=== PATIENT | female | born 1960 | race Caucasian/White ===

== ENCOUNTER → 2019-04-16 13:48 | Outpatient (BNVA) | payer MEDICARE, MEDICAID, SELFPAY | PROVIDERS: Family Provider Nurse Practitioner Family; PCP Nurse Practitioner Family; Visit Provider Nurse Practitioner | DX: F33.41 Major depressive disorder, recurrent, in partial remission (principal) | CPT/HCPCS: 99213 ==

== ENCOUNTER → 2019-07-16 08:19 | Outpatient (BNVA) | payer MEDICARE, MEDICAID, SELFPAY | PROVIDERS: Family Provider Nurse Practitioner Family; PCP Nurse Practitioner Family; Visit Provider Nurse Practitioner | DX: F33.41 Major depressive disorder, recurrent, in partial remission (principal) | CPT/HCPCS: 99213 ==

== ENCOUNTER → 2019-09-23 14:08 | Outpatient (BNVA) | payer MEDICARE, MEDICAID, SELFPAY | PROVIDERS: Family Provider Nurse Practitioner Family; PCP Nurse Practitioner Family; Visit Provider Podiatrist Foot & Ankle Surgery | DX: E11.42 Type 2 diabetes mellitus with diabetic polyneuropathy (principal); M79.671 Pain in right foot; M79.672 Pain in left foot | CPT/HCPCS: 73630 ==

== ENCOUNTER → 2019-10-22 08:13 | Outpatient (BNVA) | payer MEDICARE, MEDICAID, SELFPAY | PROVIDERS: Family Provider Nurse Practitioner Family; PCP Nurse Practitioner Family; Visit Provider Nurse Practitioner | DX: F33.41 Major depressive disorder, recurrent, in partial remission (principal); F41.1 Generalized anxiety disorder | CPT/HCPCS: 99213 ==

== ENCOUNTER → 2019-12-19 13:23 | Outpatient (BNVA) | payer MEDICARE, MEDICAID, SELFPAY | PROVIDERS: Family Provider Nurse Practitioner Family; PCP Nurse Practitioner Family; Visit Provider Podiatrist Foot & Ankle Surgery | DX: E11.42 Type 2 diabetes mellitus with diabetic polyneuropathy (principal); M79.671 Pain in right foot; M79.672 Pain in left foot; M25.372 Other instability, left ankle; M25.371 Other instability, right ankle | CPT/HCPCS: 73610 ==

== ENCOUNTER → 2020-01-06 08:07 | Outpatient (BNVA) | payer MEDICARE, MEDICAID, SELFPAY | PROVIDERS: Family Provider Nurse Practitioner Family; PCP Nurse Practitioner Family; Visit Provider Nurse Practitioner | DX: F33.41 Major depressive disorder, recurrent, in partial remission (principal) | CPT/HCPCS: 99213 ==

== ENCOUNTER → 2020-01-24 08:59 | Outpatient (BNVA) | payer MEDICARE, MEDICAID, SELFPAY | PROVIDERS: Family Provider Nurse Practitioner Family; PCP Nurse Practitioner Family; Visit Provider Nurse Practitioner | DX: F33.41 Major depressive disorder, recurrent, in partial remission (principal) | CPT/HCPCS: 99214 ==

== ENCOUNTER → 2020-03-13 10:50 | Outpatient (BNVA) | payer MEDICARE, MEDICAID, SELFPAY | PROVIDERS: Family Provider Nurse Practitioner Family; PCP Nurse Practitioner Family; Visit Provider Nurse Practitioner | DX: F33.41 Major depressive disorder, recurrent, in partial remission (principal) | CPT/HCPCS: 99214 ==

== ENCOUNTER 2020-03-31 16:02 | Emergency (ER) | payer MEDICARE, MEDICAID, SELFPAY ==
[2020-03-31 16:03] VITALS: BP 187/75; PULSE 66; RESP 18; TEMP 36.7; O2SAT 98; BMI 60.7
--- NOTE | 2020-03-31 16:22 | ED_ITS ---
Documented by User: PALLAVI Castañeda 03/31/20 17:05 HPI - Fall General: Chief Complaint: Fall Stated Complaint: FALL, L ANKLE PAIN , NECK PAIN Time Seen by Provider: 03/31/20 16:17 Source: patient Mode of arrival: EMS Limitations: no limitations History of Present Illness: HPI Narrative: Patient is a 60-year-old female who presents to ED today via EMS following a slip and fall on ice that happened just prior to arrival. Patient tells me she slipped and fell backwards striking the posterior aspect of her head. There was no LOC. She is complaining of a headache and neck pain as well as upper back pain. She states she twisted her left ankle during the fall. She has not been able to bear weight on the ankle since event. She denies lower back pain, hip pain. Patient is alert, oriented, and answering all questions appropriately. She has no other complaints other than those mentioned above. MD complaint: fall Onset (ago): hour(s) Fall from: standing Fall witnessed: yes, by family Place fall occurred: home Loss of consciousness: None Prolonged down time: no Symptoms prior to fall: none Context: tripped/slipped (on ice) Location of injury: head, neck and back (upper back) Location of injury - extremities: Left: ankle and foot Associated symptoms-after fall: Reports no associated symptoms, headache(s) and neck pain; Denies chest pain, confusion, lightheadedness or vertigo Review of Systems Const: Denies: fever(s), chills, body aches or fatigue Eyes: Denies: change in vision, blurry vision or photophobia Card: Denies: chest pain, palpitations or lightheadedness Resp: Denies: dyspnea GI: Denies: nausea or vomiting Musc: Reports: neck pain, back pain, extremity pain (L foot) and joint pain (L ankle) Skin/Breast: Reports: other (no lacerations/abrasions noted) Neuro: Reports: headache(s); Denies: numbness in extremities, weakness in extremities, sensory changes, dizziness, vertigo, confusion or Slurred speech present [facility] ED PFSH: Medical History Bipolar disorder Fibromyalgia Hyperlipidemia Hypertension Major depressive disorder, recurrent, 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 Surgical History H/O tubal ligation Family History Family/Other Diabetes Denies family history of CAD (coronary artery disease) Clotting disorder Dementia Hyperlipidemia Psychiatric illness Chronic kidney disease (CKD) Suicide Anesthesia complication Bleeding disorder Family history of premature coronary artery disease Lung disease Cancer Hypertension Stroke Social History Smoking and tobacco status: never smoked Alcohol intake: never Current occupational status: disabled Physical Exam Const: COMMON NORMALS: no acute distress, patient oriented x3, no limitations and alert GENERAL APPEARANCE: cooperative NUTRITIONAL APPEARANCE: obese (BMI > 60) morbidly obese ORIENTATION/CONSCIOUSNESS: Yes awake, Yes oriented to person, Yes oriented to place and Yes oriented to time HENMT: COMMON NORMALS: normocephalic, atraumatic, hearing grossly normal bilaterally and EAC's normal HEAD & SCALP: normal to inspection, normocephalic and atraumatic FACE & SINUS: normal facial exam and sinuses nontender EXTERNAL AUDITORY CANAL: EAC's normal Eye: COMMON NORMALS: Equal, round and reactive pupils present and EOMs intact bilaterally GENERAL EYE: appearance normal, both eyes and all related structures PUPIL: Yes Equal, round and reactive pupils present Neck/C-Spine: CERVICAL SPINE: Yes Cervical spine tenderness (mid to lower C spine) and No step off deformity OTHER: c-collar placed by EMS; this was not removed for ROM testing Chest: COMMONS NORMALS: normal inspection of the chest and normal palpation of entire chest wall Resp: COMMON NORMALS: normal respiratory effort and clear to auscultation bilaterally AUSCULTATION: clear to auscultation bilaterally Cardio: COMMON NORMALS: regular rate and regular rhythm RATE: regular rate RHYTHM: regular rhythm : COMMON NORMALS: Yes no CVA tenderness BLADDER/KIDNEY EXAM: Yes no CVA tenderness Back/Pelvis: COMMON NORMALS: no CVA tenderness THORACIC SPINE/UPPER BACK: Yes normal to inspection and Yes thoracic spinal tenderness (upper T spine) LUMBAR SPINE/LOWER BACK: Yes normal to inspection and No lumbar spinal tenderness PELVIS: Yes buttocks normal SACROILIAC JOINTS: Yes SI joints normal COCCYX: no tenderness Extremity: GENERAL: Yes normal exam except as noted OTHER: TTP to lateral dorsal L foot; TTP 4-5 digits; TTP throughout L ankle joint-pain mainly produced with foot inversion; there are no obvious bony deformities noted; NV intact Neuro: RACHAEL COMA SCALE: document [facility] findings Rachael coma scale eye opening: Spontaneous [place] coma scale verbal response: Orientated Rachael coma scale motor response: Obey commands [place] coma scale total score: 15 COMMON NORMALS: patient oriented x3, CN's II-XII intact bilaterally, moves all extremities, no focal motor deficits and no sensory deficits noted SENSORIUM/ORIENTATION: Yes alert, Yes oriented to person, Yes oriented to place and Yes oriented to time GAIT: Yes Unable to assess gait Skin: NARRATIVE SKIN EXAM: no lacerations/abrasions noted Course Vital Signs: Vital signs: Vital Signs Temperature 98.9 F 03/31/20 18:57 Pulse Rate 67 03/31/20 18:57 Respiratory Rate 20 H 03/31/20 18:57 Blood Pressure 171/57 03/31/20 18:57 Pulse Oximetry 98 03/31/20 18:57 MDM - Fall Imaging Data^: CT Head: Radiologist's impression: [address] [address] [address] Scan Report Signed Patient: Jaylin Granados Unit #: [id number] : 1960 6 Age/Sex: 60 / F ADM Date: 03/31/20 Loc: ER Room/Bed: Attending Dr: Ordering Provider/Ordering MD: Crystal Orozco Date of Service: 03/31/20 Procedure(s): CT head wo con* [id number] Accession Number(s): [id number] Report Number: [id number] PROCEDURE INFORMATION: Exam: CT Head Without Contrast Exam date and time: 03/31/2020 4:27 PM Age: 60 years old Clinical indication: Injury or trauma; Fall; Blunt trauma (contusions or hematomas); Additional info: Trauma/fall/pain TECHNIQUE: Imaging protocol: Computed tomography of the head without contrast. Axial, coronal and sagittal reformatted images were created and reviewed. Radiation optimization: All CT scans at this facility use at least one of these dose optimization techniques: automated exposure control; mA and/or kV adjustment per patient size (includes targeted exams where dose is matched to clinical indication); or iterative reconstruction. COMPARISON: No relevant prior studies available. RADIATION DOSE METRICS: Total DLP (mGy-cm): 910.05 FINDINGS: Brain: No CT evidence of acute intracranial hemorrhage or acute territorial infarction. No significant mass effect or midline shift. Basal cisterns patent. Cerebral ventricles: Normal in size and configuration. Bones/joints: No acute osseous abnormality. Paranasal sinuses: Minimal ethmoid mucosal thickening. Mastoid air cells: Grossly unremarkable. Vasculature: Calcific atherosclerotic disease in the cavernous internal carotid arteries. Soft tissues: Grossly unremarkable. CT/CT head wo con* [id number] IMPRESSION: 1[address] No CT evidence of acute intracranial pathology. 2. Additional findings, as above. Radiation Dose CTDIVOL = (mGy): DLP = 910.05 (mGy-cm) Dictated By: Rafael Sandoval MD Signed By: Rafael Sandoval MD Signed Date/Time: 03/31/201701 DD/ 00 Discharge Plan Discharge Patient Disposition: Home Clinical Impression: Neck pain Fall Qualifiers: Encounter type: initial encounter Qualified Code(s): W19.XXXA - Unspecified fall, initial encounter Condition: Stable Prescriptions: New ibuprofen 800 mg tablet 800 mg PO Q8H PRN (Reason: pain) Qty: 30 RF: 0 methocarbamol 750 mg tablet 750 mg PO Q8H Qty: 15 RF: 0 No Action (DME) Articulating AFO See Rx Instructions .Route .MEDSUPPLY Qty: 1 RF: 0 (DME) Diabetic shoes with molded inserts See Rx Instructions .Route .MEDSUPPLY Qty: 1 RF: 0 carbamazepine [Tegretol] 200 mg tablet 200 mg PO BID Qty: 60 RF: 2 nefazodone 200 mg tablet 200 mg PO BID Qty: 60 RF: 2 topiramate [Topamax] 25 mg tablet 50 mg PO BID Qty: 60 RF: 2 zolpidem [Ambien] 5 mg tablet 5 mg PO .at bed Qty: 30 RF: 2 tramadol 50 mg tablet 50 mg PO QID RF: 0 carbidopa-levodopa 25-100 mg tablet 1 tab PO DAILY PRNRF: 0 dicyclomine 10 mg capsule 10 mg PO BID RF: 0 estradiol [Estrace] 1 mg tablet 1 mg PO DAILY RF: 0 levothyroxine 100 mcg capsule 100 mcg PO DAILY RF: 0 lisinopril 2.5 mg tablet 2.5 mg PO DAILY RF: 0 lovastatin 40 mg tablet 40 mg PO DAILY RF: 0 pregabalin [Lyrica] 100 mg capsule 100 mg PO BID RF: 0 metformin 1,000 mg tablet 1,000 mg PO BID RF: 0 progesterone micronized 200 mg capsule 400 mg PO DAILY RF: 0 omeprazole 40 mg capsule,delayed release(DR/EC) 40 mg PO DAILY RF: 0 pioglitazone [Actos] 45 mg tablet 45 mg PO DAILY RF: 0 azelastine 137 mcg (0.1 %) aerosol,spray 1 spray INTRANASAL DAILY RF: 0 Pazeo 0.7 % drops 1 drop ophthalmic (eye) DAILY RF: 0 sertraline [Zoloft] 50 mg tablet 50 mg PO DAILY Qty: 30 RF: 1 (DME) Bilateral AFO's or Dupree Balance Brace See Rx Instructions .Route .MEDSUPPLY Qty: 1 RF: 0 Discharge Orders: Discharge ED (Routine); Ordered 03/31/20 Ordered By: Alexis Carlin Referrals: Yannick Garrett FNP [Primary Care Provider] - Discharge Diet: Regular Discharge Activity: Increase activity as tolerated Activity Restrictions/Additional Instructions: Follow-up with medical provider as directed in 7 to 10 days for reevaluation. Take medications as prescribed. Remember methocarbamol as a muscle relaxer and can cause some drowsiness so take at night before bed. Apply cold pack or heat on sore areas to help with symptoms. Return to the ER or your medical provider if condition worsens. Please read and understand discharge instructions. If any questions, please ask. Sign Out Sign Out Data: Patient Sign Out occurred on 03/31/20 at 17:14. Patient's care was discussed, and care was transferred from to PALLAVI Milligan. 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 Surgical History H/O tubal ligation Family History Family/Other Diabetes Denies family history of CAD (coronary artery disease) Clotting disorder Dementia Hyperlipidemia Psychiatric illness Chronic kidney disease (CKD) Suicide Anesthesia complication Bleeding disorder Family history of premature coronary artery disease Lung disease Cancer Hypertension Stroke Social History Smoking and tobacco status: never smoked Alcohol intake: never Current occupational status: disabled Course Vital Signs: Vital signs: Vital Signs Temperature 98.9 F 03/31/20 18:57 Pulse Rate 67 03/31/20 18:57 Respiratory Rate 20 H 03/31/20 18:57 Blood Pressure 171/57 03/31/20 18:57 Pulse Oximetry 98 03/31/20 18:57 MDM - Fall MDM Narrative: Medical decision making narrative: I took over patient care from Crystal Orozco physicians dermatology physician assistant at 5 PM. Crystal Orozco performed the history and physical exam and ordered all imaging. I took over patient care was waiting on x-ray and CT of cervical spine results. Patient is a 60-year-old female who who fell backwards hitting back of head with no loss of consciousness. Patient now has neck pain, thoracic back pain, left foot and left ankle pain. All imaging was negative and showed no acute fractures or findings. Patient was discharged with a prescription for ibuprofen 800 and Robaxin. Patient told to follow-up with PCP in 7 to 10 days. Return to ED precautions given. Patient understood agree with plan. Imaging Data^: Other CT: Attestation: I personally reviewed and interpreted this imaging study as follows: Radiologist's impression: [address] [place] [address] CT Scan Report Signed Patient: Jaylin Granados Unit #: [id number] : 1960 Age/Sex: 60 / F ADM Date: 03/31/20 Loc: ER Room/Bed: Attending Dr: Ordering Provider/Ordering MD: Crystal Orozco Date of Service: 03/31/20 Procedure(s): CT cervical spin wo con* [id number] Accession Number(s): [id number] Report Number: [id number] PROCEDURE INFORMATION: Exam: CT Cervical Spine Without Contrast Exam date and time: 03/31/2020 4:27 PM Age: 60 years old Clinical indication: Injury or trauma; Fall; Blunt trauma; Additional info: Fall/pain TECHNIQUE: Imaging protocol: Computed tomography images of the cervical spine without contrast. Axial, coronal and sagittal reformatted images were created and reviewed. Radiation optimization: All CT scans at this facility use at least one of these dose optimization techniques: automated exposure control; mA and/or kV adjustment per patient size (includes targeted exams where dose is matched to clinical indication); or iterative reconstruction. COMPARISON: No relevant prior studies available. RADIATION DOSE METRICS: Total DLP (mGy-cm): 916.76 FINDINGS: Bones/joints: Osteopenia. Normal cervical lordosis. No CT evidence of acute fracture, dislocation or subluxation. Alignment anatomic. Mild dextroscoliosis. Vertebral body heights maintained. Discs/Spinal canal/Neural foramina: Mild multilevel spondylosis. No significant spinal canal or neural foraminal stenosis. Lungs: Grossly unremarkable. Soft tissues: Grossly unremarkable. CT/CT cervical spin wo con* [id number] IMPRESSION: 1. No CT evidence of acute cervical spine traumatic injury. 2. Additional findings, as above. Radiation Dose CTDIVOL = (mGy): DLP = 916.76 (mGy-cm) Dictated By: Rafael Sandoval MD Signed By: Rafael Sandoval MD Signed Date/Time: 03/31/201707 DD/ 06 Xray Ortho: Attestation: I personally reviewed and interpreted this imaging study as follows: Radiologist's impression: [address] [address] XRay Report Signed Patient: Jaylin Granados Unit #: [id number] : 1960 Age/Sex: 60 / F ADM Date: 03/31/20 Loc: ER Room/Bed: Attending Dr: Ordering Provider/Ordering MD: Crystal Orozco Date of Service: 03/31/20 Procedure(s): XR thoracic spine 3V* [id number] Accession Number(s): [id number] Report Number: [id number] PROCEDURE INFORMATION: Exam: XR Thoracic Spine, 3 Views Exam date and time: 03/31/2020 4:44 PM Age: 60 years old Clinical indication: Injury or trauma; Fall; Blunt trauma (contusions or hematomas); Additional info: Fall/pain TECHNIQUE: Imaging protocol: XR of the thoracic spine, 3 views. COMPARISON: No relevant prior studies available. FINDINGS: Bones/joints: Osteopenia. Multilevel spondylosis. No acute fracture. Normal alignment. Soft tissues: Grossly unremarkable. XR/XR thoracic spine 3V* [id number] IMPRESSION: No acute radiographic findings. Dictated By: Rafael Sandoval MD Signed By: Rafael Sandoval MD Signed Date/Time: 03/31/201754 DD/ [address] [address] XRay Report Signed Patient: Jaylin Granados Unit #: [id number] : 1960 Age/Sex: 60 / F ADM Date: 03/31/20 Loc: ER Room/Bed: Attending Dr: Ordering Provider/Ordering MD: Crystal Orozco Date of Service: 03/31/20 Procedure(s): XR foot LT min 3V* [id number] Accession Number(s): [id number] Report Number: [id number] PROCEDURE INFORMATION: Exam: XR Left Foot Exam date and time: 03/31/2020 4:44 PM Age: 60 years old Clinical indication: Injury or trauma; Fall; Blunt trauma; Foot; Left; Additional info: Fall/pain TECHNIQUE: Imaging protocol: XR Left foot. Views: 3 or more views. COMPARISON: [place] [id number] [facility] 09/23/2019 2:13 PM FINDINGS: Bones/joints: Osteopenia. No radiographic evidence of acute fracture or dislocation. Alignment anatomic. Mild degenerative changes. Soft tissues: Soft tissue swelling. XR/XR foot LT min 3V* [id number] IMPRESSION: No acute osseous abnormality. Dictated By: Rafael Sandoval MD Signed By: Rafael Sandoval MD Signed Date/Time: 03/31/201744 DD/ [address] [address] XRay Report Signed Patient: Jaylin Granados Unit #: [id number] : 1960 Age/Sex: 60 / F ADM Date: 03/31/20 Loc: ER Room/Bed: Attending Dr: Ordering Provider/Ordering MD: Crystal Orozco Date of Service: 03/31/20 Procedure(s): XR ankle LT min 3V* [id number] Accession Number(s): [id number] Report Number: [id number] PROCEDURE INFORMATION: Exam: XR Left Ankle Exam date and time: 03/31/2020 4:44 PM Age: 60 years old Clinical indication: Injury or trauma; Fall; Blunt trauma; Ankle; Left; Additional info: Fall/pain TECHNIQUE: Imaging protocol: XR Left ankle. Views: 3 or more views. COMPARISON: CR XR ankle LT min 3V* [id number] 12/19/2019 1:33 PM FINDINGS: Bones/joints: Well corticated ossicle adjacent to the medial malleolus, similar to prior. No radiographic evidence of acute fracture or dislocation. Alignment anatomic. Mild degenerative changes. No definite effusion. Soft tissues: Mild soft tissue swelling. XR/XR ankle LT min 3V* [id number] IMPRESSION: No acute osseous abnormality. Dictated By: Rafael Sandoval MD Signed By: Rafael Sandoval MD Signed Date/Time: 03/31/201743 DD/ 42 Discharge Plan Discharge Patient Disposition: Home Clinical Impression: Neck pain Fall Qualifiers: Encounter type: initial encounter Qualified Code(s): W19.XXXA - Unspecified fall, initial encounter Condition: Stable Prescriptions: New ibuprofen 800 mg tablet 800 mg PO Q8H PRN (Reason: pain) Qty: 30 RF: 0 methocarbamol 750 mg tablet 750 mg PO Q8H Qty: 15 RF: 0 No Action (DME) Articulating AFO See Rx Instructions .Route .MEDSUPPLY Qty: 1 RF: 0 (DME) Diabetic shoes with molded inserts See Rx Instructions .Route .MEDSUPPLY Qty: 1 RF: 0 carbamazepine [Tegretol] 200 mg tablet 200 mg PO BID Qty: 60 RF: 2 nefazodone 200 mg tablet 200 mg PO BID Qty: 60 RF: 2 topiramate [Topamax] 25 mg tablet 50 mg PO BID Qty: 60 RF: 2 zolpidem [Ambien] 5 mg tablet 5 mg PO .at bed Qty: 30 RF: 2 tramadol 50 mg tablet 50 mg PO QID RF: 0 carbidopa-levodopa 25-100 mg tablet 1 tab PO DAILY PRNRF: 0 dicyclomine 10 mg capsule 10 mg PO BID RF: 0 estradiol [Estrace] 1 mg tablet 1 mg PO DAILY RF: 0 levothyroxine 100 mcg capsule 100 mcg PO DAILY RF: 0 lisinopril 2.5 mg tablet 2.5 mg PO DAILY RF: 0 lovastatin 40 mg tablet 40 mg PO DAILY RF: 0 pregabalin [Lyrica] 100 mg capsule 100 mg PO BID RF: 0 metformin 1,000 mg tablet 1,000 mg PO BID RF: 0 progesterone micronized 200 mg capsule 400 mg PO DAILY RF: 0 omeprazole 40 mg capsule,delayed release(DR/EC) 40 mg PO DAILY RF: 0 pioglitazone [Actos] 45 mg tablet 45 mg PO DAILY RF: 0 azelastine 137 mcg (0.1 %) aerosol,spray 1 spray INTRANASAL DAILY RF: 0 Pazeo 0.7 % drops 1 drop ophthalmic (eye) DAILY RF: 0 sertraline [Zoloft] 50 mg tablet 50 mg PO DAILY Qty: 30 RF: 1 (DME) Bilateral AFO's or Dupree Balance Brace See Rx Instructions .Route .MEDSUPPLY Qty: 1 RF: 0 Discharge Orders: Discharge ED (Routine); Ordered 03/31/20 Ordered By: Alexis Carlin Referrals: Yannick Garrett FNP [Primary Care Provider] - Discharge Diet: Regular Discharge Activity: Increase activity as tolerated Activity Restrictions/Additional Instructions: Follow-up with medical provider as directed in 7 to 10 days for reevaluation. Take medications as prescribed. Remember methocarbamol as a muscle relaxer and can cause some drowsiness so take at night before bed. Apply cold pack or heat on sore areas to help with symptoms. Return to the ER or your medical provider if condition worsens. Please read and understand discharge instructions. If any questions, please ask. Sign Out Sign Out Data: Patient Sign Out occurred on 03/31/20 at 17:14. Patient's care was discussed, and care was transferred from to PALLAVI Milligan. Coding Level of Care Code ED Automation/Controls Manager for Tedg Fwd Exam Comprehensive
--- NOTE | 2020-03-31 16:22 | XRR_ITS ---
PROCEDURE INFORMATION: Exam: XR Left Ankle Exam date and time: 03/31/2020 4:44 PM Age: 60 years old Clinical indication: Injury or trauma; Fall; Blunt trauma; Ankle; Left; Additional info: Fall/pain TECHNIQUE: Imaging protocol: XR Left ankle. Views: 3 or more views. COMPARISON: CR XR ankle LT min 3V* [id number] 12/19/2019 1:33 PM FINDINGS: Bones/joints: Well corticated ossicle adjacent to the medial malleolus, similar to prior. No radiographic evidence of acute fracture or dislocation. Alignment anatomic. Mild degenerative changes. No definite effusion. Soft tissues: Mild soft tissue swelling. XR/XR ankle LT min 3V* [id number] IMPRESSION: No acute osseous abnormality.
--- NOTE | 2020-03-31 16:22 | XRR_ITS ---
PROCEDURE INFORMATION: Exam: XR Left Foot Exam date and time: 03/31/2020 4:44 PM Age: 60 years old Clinical indication: Injury or trauma; Fall; Blunt trauma; Foot; Left; Additional info: Fall/pain TECHNIQUE: Imaging protocol: XR Left foot. Views: 3 or more views. COMPARISON: [place] [id number] [facility] 09/23/2019 2:13 PM FINDINGS: Bones/joints: Osteopenia. No radiographic evidence of acute fracture or dislocation. Alignment anatomic. Mild degenerative changes. Soft tissues: Soft tissue swelling. XR/XR foot LT min 3V* [id number] IMPRESSION: No acute osseous abnormality.
[2020-03-31 17:03] VITALS: BP 184/70; PULSE 62; RESP 18; O2SAT 100
[2020-03-31 17:19] VITALS: BP 184/70; PULSE 62; RESP 18; O2SAT 99
[2020-03-31 18:57] VITALS: BP 171/57; PULSE 67; RESP 20; TEMP 37.2; O2SAT 98
== END 2020-03-31 19:00 | disposition home or self-care (01) ==
PROVIDERS: Emergency Provider Physician Assistant; PCP Nurse Practitioner Family
DX: M54.2 Cervicalgia (principal); Z79.84 Long term (current) use of oral hypoglycemic drugs; W00.0XXA Fall on same level due to ice and snow, initial encounter; E78.5 Hyperlipidemia, unspecified; I10 Essential (primary) hypertension; E11.9 Type 2 diabetes mellitus without complications
CPT/HCPCS: 70450; 72072; 72125; 73610; 73630; 99283

== ENCOUNTER → 2020-04-03 08:05 | Outpatient (BNVA) | payer MEDICARE, MEDICAID, SELFPAY | PROVIDERS: PCP Nurse Practitioner Family; Visit Provider Nurse Practitioner | DX: F33.41 Major depressive disorder, recurrent, in partial remission (principal) | CPT/HCPCS: 99214 ==

== ENCOUNTER → 2020-04-06 10:06 | Outpatient (BNVA) | payer MEDICARE, MEDICAID, SELFPAY | PROVIDERS: PCP Nurse Practitioner Family; Visit Provider Podiatrist Foot & Ankle Surgery | DX: M25.572 Pain in left ankle and joints of left foot (principal); Z46.89 Encounter for fitting and adjustment of other specified devices; S93.402D Sprain of unspecified ligament of left ankle, subsequent encounter; X58.XXXD Exposure to other specified factors, subsequent encounter | CPT/HCPCS: 73610; 97760; L1902 ==

== ENCOUNTER 2020-04-06 10:59 | Outpatient (CLI) | payer MEDICARE, MEDICAID, SELFPAY | END 2020-04-06 11:00 | disposition home or self-care (01) | LOC: SPT 10:59 | PROVIDERS: PCP Nurse Practitioner Family; Visit Provider Podiatrist Foot & Ankle Surgery | DX: Z46.89 Encounter for fitting and adjustment of other specified devices (principal); S93.402D Sprain of unspecified ligament of left ankle, subsequent encounter; X58.XXXD Exposure to other specified factors, subsequent encounter | CPT/HCPCS: 97760; L1902 ==

== ENCOUNTER → 2020-06-04 10:19 | Outpatient (BNVA) | payer MEDICARE, MEDICAID, SELFPAY | PROVIDERS: PCP Nurse Practitioner Family; Visit Provider Nurse Practitioner | DX: F33.41 Major depressive disorder, recurrent, in partial remission (principal) | CPT/HCPCS: 99214 ==

== ENCOUNTER → 2020-08-27 10:13 | Outpatient (BNVA) | payer MEDICARE, MEDICAID, SELFPAY | PROVIDERS: PCP Nurse Practitioner Family; Visit Provider Nurse Practitioner | DX: F33.41 Major depressive disorder, recurrent, in partial remission (principal) | CPT/HCPCS: 99214 ==

== ENCOUNTER → 2020-09-17 08:24 | Outpatient (BNVA) | payer MEDICARE, MEDICAID, SELFPAY | PROVIDERS: PCP Nurse Practitioner Family; Visit Provider Podiatrist Foot & Ankle Surgery | DX: S90.121A Contusion of right lesser toe(s) without damage to nail, initial encounter (principal); W22.09XA Striking against other stationary object, initial encounter; M25.571 Pain in right ankle and joints of right foot | CPT/HCPCS: 73630 ==

== ENCOUNTER → 2020-12-04 12:36 | Outpatient (BNVA) | payer MEDICARE, MEDICAID, SELFPAY | PROVIDERS: PCP Nurse Practitioner Family; Visit Provider Nurse Practitioner | DX: F33.41 Major depressive disorder, recurrent, in partial remission (principal) | CPT/HCPCS: 99214 ==

== ENCOUNTER → 2021-02-26 07:37 | Outpatient (BNVA) | payer MEDICARE, MEDICAID, SELFPAY | PROVIDERS: PCP Nurse Practitioner Family; Visit Provider Nurse Practitioner | DX: F33.41 Major depressive disorder, recurrent, in partial remission (principal) | CPT/HCPCS: 99214 ==

== ENCOUNTER 2021-03-22 14:22 | Outpatient (CLI) | payer MEDICARE, MEDICAID, SELFPAY | END 2021-03-22 14:23 | disposition home or self-care (01) | LOC: SPT 14:23 | PROVIDERS: PCP Nurse Practitioner Family; Visit Provider Podiatrist Foot & Ankle Surgery | DX: Z46.89 Encounter for fitting and adjustment of other specified devices (principal); M76.821 Posterior tibial tendinitis, right leg | CPT/HCPCS: 97760; L4397 ==

== ENCOUNTER → 2021-05-05 10:23 | Outpatient (BNVA) | payer MEDICARE, MEDICAID, SELFPAY | PROVIDERS: PCP Nurse Practitioner Family; Visit Provider Internal Medicine | DX: R76.8 Other specified abnormal immunological findings in serum (principal); M25.50 Pain in unspecified joint; R53.83 Other fatigue; Z11.59 Encounter for screening for other viral diseases; Z87.891 Personal history of nicotine dependence | CPT/HCPCS: 73120; 73620; 82550; 83516; 85651; 86140; 86160; 86162; 86200; 86235; 86255; 86376; 86704; 86803; 87340; 99204 ==

== ENCOUNTER 2021-05-05 12:10 | Outpatient (CLI) | payer MEDICARE, MEDICAID, SELFPAY | END 2021-05-05 12:11 | disposition home or self-care (01) | LOC: LAB 12:13 | PROVIDERS: PCP Nurse Practitioner Family; Visit Provider Internal Medicine | DX: R76.8 Other specified abnormal immunological findings in serum (principal) | CPT/HCPCS: 82550; 83516; 85651; 86140; 86160; 86162; 86200; 86235; 86255; 86376; 86704; 86803; 87340 ==

== ENCOUNTER → 2021-05-19 14:34 | Outpatient (BNVA) | payer MEDICARE, MEDICAID, SELFPAY | PROVIDERS: PCP Nurse Practitioner Family; Visit Provider Internal Medicine | DX: R76.8 Other specified abnormal immunological findings in serum (principal); M25.50 Pain in unspecified joint; R53.83 Other fatigue; Z79.899 Other long term (current) drug therapy; Z87.891 Personal history of nicotine dependence | CPT/HCPCS: 99214 ==

== ENCOUNTER → 2021-05-28 12:39 | Outpatient (BNVA) | payer MEDICARE, MEDICAID, SELFPAY | PROVIDERS: PCP Nurse Practitioner Family; Visit Provider Nurse Practitioner | DX: F33.41 Major depressive disorder, recurrent, in partial remission (principal) | CPT/HCPCS: 99214 ==

== ENCOUNTER 2021-06-21 15:45 | Emergency (ER) | payer MEDICARE, MEDICAID, SELFPAY ==
[2021-06-21 16:13] VITALS: BP 176/75; PULSE 80; RESP 15; TEMP 36.4; O2SAT 96; BMI 53.7
--- NOTE | 2021-06-21 16:25 | XRR_ITS ---
PROCEDURE INFORMATION: Exam: XR Right Knee Exam date and time: 06/21/2021 4:42 PM Age: 61 years old Clinical indication: Pain; Knee; Right; Additional info: Fall TECHNIQUE: Imaging protocol: XR Right knee. Views: 3 views. COMPARISON: CR Knee 3 views, RIGHT* [id number] 08/18/2017 3:03 PM FINDINGS: Bones/joints: There is tricompartmental narrowing corresponding to moderate osteoarthritis. An exostosis is seen in the medial condyle of the femur. Soft tissues: Unremarkable XR/XR knee RT 3V* [id number] IMPRESSION: 1. Osteoarthritis 2. Medial femoral exostosis 3. Otherwise No acute findings.
--- NOTE | 2021-06-21 16:25 | XRR_ITS ---
PROCEDURE INFORMATION: Exam: XR Left Elbow Exam date and time: 06/21/2021 4:42 PM Age: 61 years old Clinical indication: Pain; Elbow; Left TECHNIQUE: Imaging protocol: XR Left elbow. Views: 3 or more views. COMPARISON: CR XR hand LT 2V [id number] 05/05/2021 12:46 PM FINDINGS: Bones/joints: Negative for acute bony abnormality. Soft tissues: Unremarkable XR/XR elbow LT min 3V* [id number] IMPRESSION: No acute findings.
--- NOTE | 2021-06-21 16:25 | XRR_ITS ---
PROCEDURE INFORMATION: Exam: XR Chest Exam date and time: 06/21/2021 4:42 PM Age: 61 years old Clinical indication: Cough; Additional info: Dyspnea/cough TECHNIQUE: Imaging protocol: XR of the chest. Views: 1 view. COMPARISON: CT cervical spin wo con* [id number] 03/31/2020 4:53 PM FINDINGS: Lungs: Unremarkable. No consolidation. Pleural spaces: Unremarkable. No pleural effusion. No pneumothorax. Heart/Mediastinum: Unremarkable. No cardiomegaly. Bones/joints: Unremarkable. XR/XR chest 1V portable [id number] IMPRESSION: No acute findings.
--- NOTE | 2021-06-21 16:25 | XRR_ITS ---
PROCEDURE INFORMATION: Exam: XR Left Knee Exam date and time: 06/21/2021 4:42 PM Age: 61 years old Clinical indication: Pain; Knee; Left; Additional info: Fall TECHNIQUE: Imaging protocol: XR Left knee. Views: 3 views. COMPARISON: CR Knee 3 views, LEFT* [id number] 08/18/2017 3:03 PM FINDINGS: Bones/joints: Negative for acute bony abnormalities Soft tissues: Normal. XR/XR knee LT 3V* [id number] IMPRESSION: No acute findings.
--- NOTE | 2021-06-21 16:25 | W.ED.FALL ---
HPI - Fall General: Chief Complaint: Fall Stated Complaint: CP from fall Time Seen by Provider: 06/21/21 16:24 Source: patient Mode of arrival: ambulatory Limitations: no limitations History of Present Illness: 61-year-old female presents emergency room she stumbled over her walker she tripped on an object when she fell she landed on her knees and her left elbow states she hit the left side of her sternum as well as discomfort when she takes a deep breath there is no loss of consciousness. She was able to ambulate after this and ambulated to exam room with a cane. No other recent illness. MD complaint: fall Onset (ago): minute(s) Fall from: standing Place fall occurred: home Loss of consciousness: None Prolonged down time: no Symptoms prior to fall: none Context: tripped/slipped Location of injury: chest Location of injury - extremities: Left: elbow and Bilateral: knee Associated symptoms-after fall: Reports chest pain and difficulty walking (Secondary to pain after the fall); Denies abdominal pain, confusion, headache(s), hematuria, lightheadedness, neck pain, numbness, short of breath, vertigo or weakness Review of Systems Const: Denies: fever(s), chills, body aches, change in appetite, fatigue or malaise ENMT: Denies: throat pain, ear or mastoid pain, nasal discharge or nasal congestion Card: Reports: chest pain; Denies: lightheadedness Resp: Denies: dyspnea, productive cough or non-productive cough GI: Denies: abdominal pain : Denies: hematuria Musc: Denies: neck pain Skin/Breast: Denies: rash or pruritus Neuro: Reports: difficulty walking (Secondary to pain after the fall); Denies: headache(s), vertigo or confusion PFS ED PFSH: Medical History MUNDO positive Arthralgia Bipolar disorder Fatigue Fibromyalgia Hyperlipidemia Hypertension Major depressive disorder, recurrent, in partial remission Psychiatric care Type 2 diabetes mellitus with diabetic polyneuropathy Surgical History H/O tubal ligation Family History Family/Other Diabetes Other CAD (coronary artery disease) Cancer Hyperlipidemia Rheumatoid arthritis Denies family history of Lupus Clotting disorder Dementia Psychiatric illness Chronic kidney disease (CKD) Suicide Anesthesia complication Bleeding disorder Family history of premature coronary artery disease Lung disease Hypertension Stroke Social History Smoking and tobacco status: former smoker Alcohol intake: former Current occupational status: disabled History of recent travel: No Physical Exam Const: COMMON NORMALS: no acute distress GENERAL APPEARANCE: cooperative ORIENTATION/CONSCIOUSNESS: Yes awake, Yes oriented to person, Yes oriented to place and Yes oriented to time HENMT: COMMON NORMALS: normocephalic, atraumatic, hearing grossly normal bilaterally, external ears normal, EAC's normal, TM's normal bilaterally, Normal nasal mucous membranes and turbinates present, moist oral mucous membranes and oropharynx normal HEAD & SCALP: normocephalic and atraumatic NOSE: Normal nasal mucous membranes and turbinates present EXTERNAL EAR: Yes external ears normal EXTERNAL AUDITORY CANAL: EAC's normal TYMPANIC MEMBRANE: TM's normal bilaterally Eye: COMMON NORMALS: Equal, round and reactive pupils present, EOMs intact bilaterally, conjunctivae normal and no scleral icterus CONJUNCTIVA: Yes conjunctivae normal PUPIL: Yes Equal, round and reactive pupils present Neck/C-Spine: COMMON NORMALS: full ROM, no lymphadenopathy, supple and no JVD Resp: COMMON NORMALS: normal respiratory effort, No retractions, No use of accessory muscles and clear to auscultation bilaterally AUSCULTATION: clear to auscultation bilaterally Cardio: COMMON NORMALS: no JVD, regular rate, regular rhythm and No murmurs present (Cardio) RATE: regular rate RHYTHM: regular rhythm GI: COMMON NORMALS: Soft to palpation and No hepatosplenomegaly present AUSCULTATION: Yes normoactive bowel sounds PALPATION: Yes Soft to palpation, No Tenderness to palpation present (GI), No Guarding due to palpation present (GI) and Yes No hepatosplenomegaly present Extremity: COMMON NORMALS: normal to inspection, capillary refill normal, no clubbing, cyanosis or edema, no calf tenderness and no pedal edema Neuro: SENSORIUM/ORIENTATION: Yes oriented to person, Yes oriented to place and Yes oriented to time Skin: COMMON NORMALS: no rashes or lesions noted GENERAL SKIN EXAM: no rashes or lesions noted Course Vital Signs: Vital signs: Vital Signs Temperature 98.1 F 06/21/21 17:29 Pulse Rate 68 06/21/21 17:29 Respiratory Rate 22 H 06/21/21 17:29 Blood Pressure 149/72 06/21/21 17:29 Pulse Oximetry 98 06/21/21 17:29 MDM - Fall Medical Decision Making Mechanical fall. No fractures. Ice rest [id number] anti-inflammatories Tylenol as needed follow-up as needed Medical Records I reviewed the patient's medical records. Lab Data I reviewed the patient's lab results. : 06/21/21 16:50 Radiology Impressions Chest X-Ray 06/21/21 16:25 IMPRESSION: No acute findings. Elbow X-Ray 06/21/21 16:25 IMPRESSION: No acute findings. Knee X-Ray 06/21/21 16:25 IMPRESSION: 1. Osteoarthritis 2. Medial femoral exostosis 3. Otherwise No acute findings. Laboratory Results WBC 12.3 10^3/uL (4.0-10.0) H 06/21/21 16:50 RBC 4.34 10^6/uL (4.1-5.3) 06/21/21 16:50 Hgb 11.2 g/dL (11.5-15.3) L 06/21/21 16:50 Hct 36.6 % (37.0-47.0) L 06/21/21 16:50 MCV 84.3 fl (81-99) 06/21/21 16:50 MCH 25.8 pg (28.0-34.0) L 06/21/21 16:50 MCHC 30.6 g/dL (30.0-36.0) 06/21/21 16:50 RDW 16.1 % (12.1-15.1) H 06/21/21 16:50 Plt Count 256 10^3/cmm (130-400) 06/21/21 16:50 MPV 10.9 fL (7.4-10.4) H 06/21/21 16:50 Neut % (Auto) 63.2 % 06/21/21 16:50 Lymph % (Auto) 26.6 % 06/21/21 16:50 [place] % (Auto) 5.4 % 06/21/21 16:50 Eos % (Auto) 3.7 % 06/21/21 16:50 Baso % (Auto) 0.7 % 06/21/21 16:50 Neut # (Auto) 7.74 10^3/uL (1.8-7.7) H 06/21/21 16:50 Lymph # (Auto) 3.3 10^3/uL (0.8-4.8) 06/21/21 16:50 [place] # (Auto) 0.7 10^3/uL (0.2-0.9) 06/21/21 16:50 Eos # (Auto) 0.5 10^3/uL (0.0-0.8) 06/21/21 16:50 Baso # (Auto) 0.1 10^3/uL (0.0-0.1) 06/21/21 16:50 Nucleated RBC % (auto) 0 % 06/21/21 16:50 Nucleated RBCs # 0.0 /100WBC 06/21/21 16:50 Discharge Plan Discharge Patient Disposition: Home Clinical Impression: Fall Condition: Stable Prescriptions: No Action (DME) Articulating AFO See Rx Instructions .Route .MEDSUPPLY Qty: 1 0RF Rx Instructions: Custom made, Balanced Brace carbamazepine [Tegretol] 200 mg tablet 200 mg PO BID Qty: 60 2RF medroxyprogesterone 2.5 mg tablet 2.5 mg PO DAILY 0RF cholecalciferol (vitamin D3) 1,250 mcg (50,000 unit) capsule 50,000 unit PO DAILY 0RF methocarbamol 750 mg tablet 750 mg PO Q8H PRN0RF trazodone 50 mg tablet 50 mg PO DAILY 0RF topiramate [Topamax] 25 mg tablet 50 mg PO BID Qty: 60 2RF fluoxetine 20 mg capsule 20 mg PO DAILY Qty: 30 2RF tramadol 50 mg tablet 50 mg PO QID 0RF estradiol [Estrace] 1 mg tablet 1 mg PO DAILY 0RF levothyroxine 100 mcg capsule 100 mcg PO DAILY 0RF lisinopril 2.5 mg tablet 2.5 mg PO DAILY 0RF lovastatin 40 mg tablet 40 mg PO DAILY 0RF pregabalin [Lyrica] 100 mg capsule 100 mg PO BID 0RF metformin 1,000 mg tablet 1,000 mg PO BID 0RF omeprazole 40 mg capsule,delayed release(DR/EC) 40 mg PO DAILY 0RF pioglitazone [Actos] 45 mg tablet 45 mg PO DAILY 0RF azelastine 137 mcg (0.1 %) aerosol,spray 1 spray INTRANASAL DAILY 0RF [place] 0.7 % drops 1 drop ophthalmic (eye) DAILY 0RF dicyclomine 10 mg capsule 10 mg PO TID 0RF (DME) ASO See Rx Instructions .Route .MEDSUPPLY Qty: 1 0RF Rx Instructions: As directed zolpidem [Ambien CR] 6.25 mg tablet,ext release multiphase PO 0RF loratadine 10 mg capsule 10 mg PO DAILY 0RF fluticasone propionate 50 mcg/actuation spray,suspension 2 spray intranasal DAILY 0RF Rx Instructions: administer into each nostril (DME) Diabetic shoes with molded inserts See Rx Instructions .Route .MEDSUPPLY Qty: 1 0RF Rx Instructions: As directed J P & O (DME) Night Splint See Rx Instructions .Route .MEDSUPPLY Qty: 1 0RF Rx Instructions: As directed mupirocin 2 % ointment 1 applic topical BID 14 Days Qty: 15 0RF diclofenac sodium [Voltaren Arthritis Pain] 1 % gel 4 g topical QID Qty: 100 1RF Rx Instructions: apply to single knee, ankle, foot; for foot includes sole/toes/top of foot meloxicam 15 mg tablet 15 mg PO DAILY Qty: 30 1RF (DME) Bilateral AFO's or [place] Balance Brace See Rx Instructions .Route .MEDSUPPLY Qty: 1 0RF Rx Instructions: As directed ibuprofen 800 mg tablet 800 mg PO Q8H PRN (Reason: pain) Qty: 30 0RF Discharge Orders: Discharge ED (Routine); Ordered 06/21/21 Ordered By: Thor Johnson Referrals: Yannick Garrett, [employer] [Primary Care Provider] - Discharge Diet: Usual diet Discharge Activity: Increase activity as tolerated Patient Instructions: Opioid Safety Coding Level of Care Code ED Tile Sorter for [place]
[2021-06-21 16:29] VITALS: BP 176/75; PULSE 80; RESP 15; TEMP 36.4; O2SAT 96
[2021-06-21 17:05] LABS: Basophils # 0.1 10^3/uL (0.0-0.1); Basophils % 0.7 %; Eosinophils # 0.5 10^3/uL (0.0-0.8); Eosinophils % 3.7 %; Hematocrit 36.6 % (37.0-47.0); Hemoglobin 11.2 g/dL (11.5-15.3); Lymphocytes # 3.3 10^3/uL (0.8-4.8); Lymphocytes % 26.6 %; Mean Corpuscular HGB Conc 30.6 g/dL (30.0-36.0); Mean Corpuscular Hemoglobin 25.8 pg (28.0-34.0); Mean Corpuscular Volume 84.3 fl (81-99); Mean Platelet Volume 10.9 fL (7.4-10.4); Monocytes # 0.7 10^3/uL (0.2-0.9); Monocytes % 5.4 %; Neutrophils # 7.74 10^3/uL (1.8-7.7); Neutrophils % 63.2 %; Nucleated Red Blood Cells % 0 %; Platelet Count 256 10^3/cmm (130-400); Red Blood Count 4.34 10^6/uL (4.1-5.3); Red Cell Distribution Width 16.1 % (12.1-15.1); White Blood Count 12.3 10^3/uL (4.0-10.0)
[2021-06-21 17:29] VITALS: BP 149/72; PULSE 68; RESP 22; TEMP 36.7; O2SAT 98
== END 2021-06-21 17:30 | disposition home or self-care (01) ==
PROVIDERS: Emergency Provider Family Medicine; PCP Nurse Practitioner Family
DX: R07.1 Chest pain on breathing (principal); Z87.891 Personal history of nicotine dependence; W19.XXXA Unspecified fall, initial encounter; Z79.891 Long term (current) use of opiate analgesic
CPT/HCPCS: 71045; 73080; 73562; 85025; 99283

== ENCOUNTER → 2021-07-21 12:53 | Outpatient (BNVA) | payer MEDICARE, MEDICAID, SELFPAY | PROVIDERS: PCP Nurse Practitioner Family; Visit Provider Podiatrist Foot & Ankle Surgery | DX: E11.42 Type 2 diabetes mellitus with diabetic polyneuropathy (principal); M25.372 Other instability, left ankle; M76.829 Posterior tibial tendinitis, unspecified leg; M25.572 Pain in left ankle and joints of left foot | CPT/HCPCS: 99213; 99214 ==

== ENCOUNTER 2021-08-11 10:54 | Outpatient (CLI) | payer MEDICARE, MEDICAID, SELFPAY ==
[2021-08-11 11:44] LABS: Basophils % 0.4 %; Eosinophils # 0.1 10^3/uL (0.0-0.8); Eosinophils % 0.7 %; Hemoglobin 10.5 g/dL (11.5-15.3); Lymphocytes # 2.6 10^3/uL (0.8-4.8); Lymphocytes % 35.5 %; Mean Corpuscular HGB Conc 31.8 g/dL (30.0-36.0); Mean Corpuscular Hemoglobin 26.3 pg (28.0-34.0); Mean Corpuscular Volume 82.5 fl (81-99); Mean Platelet Volume 11.6 fL (7.4-10.4); Monocytes # 0.3 10^3/uL (0.2-0.9); Monocytes % 4.2 %; Neutrophils # 4.36 10^3/uL (1.8-7.7); Neutrophils % 58.9 %; Nucleated Red Blood Cells % 0 %; Platelet Count 208 10^3/cmm (130-400); Red Cell Distribution Width 14.9 % (12.1-15.1); White Blood Count 7.4 10^3/uL (4.0-10.0)
[2021-08-11 12:04] LABS: Alanine Aminotransferase 16 U/L (0-33); Albumin Level 4.4 g/dL (3.5-5.2); Alkaline Phosphatase 122 IU/L (35-105); Anion Gap 15.1 (5-19); Aspartate Amino Transferase 24 U/L (0-32); Blood Urea Nitrogen 14 mg/dL (8-23); C Reactive Protein 10.2 mg/L (0.0-4.9); Calcium 8.8 mg/dL (8.5-10.5); Carbon Dioxide 24 mmol/L (22-29); Chloride 105 mmol/L (98-107); Globulin 3.2 g/dL (1.3-4.6); Glomerular Filtration Rate 125.9 mL/min (90-130); Glucose 117 mg/dL (65-115); Osmolality Calculated 292 mOsm/kg (285-295); Potassium 4.1 mmol/L (3.5-5.1); Sodium 140 mmol/L (136-145); Total Bilirubin 0.2 mg/dL (0.15-1.2); Total Protein 7.6 g/dL (6.6-8.7)
[2021-08-13 13:27] LABS: Erythrocyte Sedimentation Rate 17 mm/hr (0-15)
== END 2021-08-11 10:55 | disposition home or self-care (01) ==
LOC: LAB 10:59
PROVIDERS: PCP Nurse Practitioner Family; Visit Provider Internal Medicine
DX: R76.8 Other specified abnormal immunological findings in serum (principal); R53.83 Other fatigue; Z79.899 Other long term (current) drug therapy
CPT/HCPCS: 80053; 85025; 85651; 86140

== ENCOUNTER → 2021-08-30 09:13 | Outpatient (BNVA) | payer MEDICARE, MEDICAID, OTHER, SELFPAY | PROVIDERS: PCP Nurse Practitioner Family; Visit Provider Internal Medicine | DX: R76.8 Other specified abnormal immunological findings in serum (principal); M25.50 Pain in unspecified joint; D64.9 Anemia, unspecified | CPT/HCPCS: 99214 ==

== ENCOUNTER 2021-11-29 12:15 | Outpatient (CLI) | payer MEDICARE, MEDICAID, SELFPAY ==
[2021-11-29 14:19] LABS: Erythrocyte Sedimentation Rate 12 mm/hr (0-15)
== END 2021-11-29 12:16 | disposition home or self-care (01) ==
LOC: LAB 12:20
PROVIDERS: PCP Family Medicine; Visit Provider Internal Medicine
DX: R53.83 Other fatigue (principal); R76.8 Other specified abnormal immunological findings in serum; Z79.899 Other long term (current) drug therapy
CPT/HCPCS: 85651

== ENCOUNTER → 2022-01-11 15:04 | Outpatient (BNVA) | payer MEDICARE, MEDICAID, SELFPAY | PROVIDERS: PCP Family Medicine; Visit Provider Internal Medicine | DX: R76.8 Other specified abnormal immunological findings in serum (principal); D64.9 Anemia, unspecified; M25.50 Pain in unspecified joint; G47.33 Obstructive sleep apnea (adult) (pediatric) | CPT/HCPCS: 99214 ==

== ENCOUNTER → 2022-01-19 10:19 | Outpatient (BNVA) | payer MEDICARE, MEDICAID, SELFPAY | PROVIDERS: PCP Family Medicine; Visit Provider Podiatrist Foot & Ankle Surgery | DX: E11.42 Type 2 diabetes mellitus with diabetic polyneuropathy (principal); M25.372 Other instability, left ankle; M76.822 Posterior tibial tendinitis, left leg; M76.61 Achilles tendinitis, right leg; M76.62 Achilles tendinitis, left leg; Z79.84 Long term (current) use of oral hypoglycemic drugs | CPT/HCPCS: 99214 ==

== ENCOUNTER 2022-01-25 08:53 | Emergency (ER) | payer MEDICARE, MEDICAID, SELFPAY ==
[2022-01-25 08:56] VITALS: PULSE 89; RESP 16; TEMP 37.6; O2SAT 93; BMI 53.7
[2022-01-25 09:56] VITALS: BP 178/69; PULSE 58; O2SAT 97
--- NOTE | 2022-01-25 10:00 | XR_ITS ---
WS: [id number] Pelvis, AP view, 01/25/2022 Clinical Data: fall/pain Comparison: Pelvis and right hip, 08/18/2017. Findings: No fractures or dislocations are seen. The SI joints and pubic symphysis are intact. The soft tissues are not remarkable. Both hips are normal. XR/XR pelvis 1-2V* [id number] Impression: Negative for fracture.
--- NOTE | 2022-01-25 10:00 | XR_ITS ---
WS: [id number] Sacrum and coccyx, PA and lateral views, 01/25/2022 Clinical Data: pain Comparison: AP pelvis, 01/25/2022 Findings: No fractures or dislocations are seen. The SI joints and pubic symphysis are unremarkable. No bone de struction or erosion is seen. XR/XR coccyx 2V [id number] Impression: Negative sacrum and coccyx.
--- NOTE | 2022-01-25 10:02 | XR_ITS ---
WS: [id number] Portable AP upright chest, 01/25/2022 Clinical Data: dyspnea/cough Comparison: Portable chest, 06/21/2021 Findings: No nodules, masses or effusions are seen. The heart is enlarged. The pulmonary vascularity is not increased. No pneumonia or pneumothorax is seen. The image is overpenetrated. XR/XR chest 1V portable [id number] Impression: Cardiomegaly
--- NOTE | 2022-01-25 10:05 | CT_ITS ---
WS: [id number] CT HEAD TECHNIQUE: Noncontrast CT of the head obtained from the skullbase to the vertex. CLINICAL INFORMATION: fall w LOC COMPARISON: None. DLP: 1118.[address] scans at [facility] use at least one of these dose optimization techniques: automated e xposure control; mA and/or kV adjustment per patient size (includes targeted exams where dose is matc hed to clinical indication); or iterative reconstruction. FINDINGS: No evidence of intracranial hemorrhage or mass effect. Ventricular system and basal cisterns are rollins nt. Mild small vessel changes with no significant parenchymal volume loss. No extra-axial fluid colle ctions. No evidence of mass or mass effect. Vascular calcification. Mild mucosal thickening ethmoid a ir cells. Paranasal sinuses and mastoid air cells are well aerated. .Normal visualized soft tissues. CT/CT head wo con* [id number] IMPRESSION: 1. No evidence of intracranial hemorrhage or mass effect. 2. No acute intracranial findings.
--- NOTE | 2022-01-25 10:05 | W.ED.FALL ---
HPI - Fall General: Chief Complaint: Fall Stated Complaint: fall Time Seen by Provider: 01/25/22 08:59 Source: patient Mode of arrival: ambulatory History of Present Illness: 62-year-old female presents to the emergency room 4 days after mechanical ground-level fall at home. She reports hitting her buttocks and then hitting her head there may or may not of been lost consciousness she was not seen after that time she did not have any vomiting since then. She is evidently scheduled for his CT yesterday but did not feel like going so did not go. On arrival here she repositions her self multiple times in bed complaining of coccyx pain. She is maintaining balance on the edge of the bed was concerned she may fall again and had her reposition so we could put the rail up. She been balancing the edge of the bed with a rail down prior to my coming in the room. MD complaint: fall Onset (ago): minute(s) Fall from: standing Place fall occurred: home Loss of consciousness: Unsure Prolonged down time: no Context: tripped/slipped Location of injury: head and pelvis Associated symptoms-after fall: Reports difficulty walking; Denies abdominal pain, chest pain, confusion, headache(s), hematuria, lightheadedness, neck pain, numbness, short of breath, vertigo or weakness Review of Systems Const: Denies: fever(s), chills, body aches, change in appetite, fatigue or malaise Eyes: Denies: change in vision or blurry vision ENMT: Denies: throat pain, ear or mastoid pain, nasal discharge or nasal congestion Card: Denies: chest pain, palpitations, irregular heart rhythm, edema, swelling of feet/ankles or lightheadedness Resp: Denies: dyspnea, productive cough or non-productive cough GI: Denies: abdominal pain, nausea, vomiting or diarrhea : Denies: flank pain, difficulty voiding, dysuria, urinary frequency, urinary urgency or hematuria Musc: Denies: neck pain Skin/Breast: Denies: rash or pruritus Neuro: Reports: difficulty walking; Denies: headache(s), vertigo or confusion PFS ED PFSH: Medical History MUNDO positive Arthralgia Bipolar disorder Fatigue Fibromyalgia Hyperlipidemia Hypertension Major depressive disorder, recurrent, in partial remission Psychiatric care Sleep apnea Type 2 diabetes mellitus with diabetic polyneuropathy Surgical History H/O tubal ligation Family History Family/Other Diabetes Other CAD (coronary artery disease) Cancer Hyperlipidemia Rheumatoid arthritis Denies family history of Lupus Clotting disorder Dementia Psychiatric illness Chronic kidney disease (CKD) Suicide Anesthesia complication Bleeding disorder Family history of premature coronary artery disease Lung disease Hypertension Stroke Social History Smoking and tobacco status: never smoked Alcohol intake: former Current occupational status: disabled History of recent travel: No Physical Exam Const: COMMON NORMALS: no acute distress GENERAL APPEARANCE: cooperative and comfortable ORIENTATION/CONSCIOUSNESS: Yes awake, Yes oriented to person, Yes oriented to place and Yes oriented to time HENMT: COMMON NORMALS: normocephalic, atraumatic and hearing grossly normal bilaterally HEAD & SCALP: normocephalic and atraumatic Lymph: LYMPHATIC: no lymphadenopathy noted and no lymphedema noted Resp: COMMON NORMALS: normal respiratory effort, No retractions, No use of accessory muscles and clear to auscultation bilaterally AUSCULTATION: clear to auscultation bilaterally Cardio: COMMON NORMALS: regular rate, regular rhythm and No murmurs present (Cardio) RATE: regular rate RHYTHM: regular rhythm GI: COMMON NORMALS: Soft to palpation and No hepatosplenomegaly present AUSCULTATION: Yes normoactive bowel sounds PALPATION: Yes Soft to palpation, No Tenderness to palpation present (GI), No Guarding due to palpation present (GI) and Yes No hepatosplenomegaly present Extremity: COMMON NORMALS: normal to inspection, capillary refill normal, no clubbing, cyanosis or edema, no calf tenderness and no pedal edema Neuro: SENSORIUM/ORIENTATION: Yes oriented to person, Yes oriented to place and Yes oriented to time Skin: COMMON NORMALS: no rashes or lesions noted GENERAL SKIN EXAM: no rashes or lesions noted Course Vital Signs: Vital signs: Vital Signs Temperature 99.7 F H 01/25/22 08:56 Pulse Rate 58 L 01/25/22 09:56 Respiratory Rate 16 01/25/22 08:56 Blood Pressure 178/69 01/25/22 09:56 Pulse Oximetry 97 01/25/22 09:56 Oxygen Delivery Me thod 01/25/22 08:56 MDM - Fall Medical Decision Making X-rays and CT are negative. Discharge patient home is tramadol she has been previously prescribed for the coccygeal pain follow-up as needed Medical Records I reviewed the patient's medical records. Lab Data I reviewed the patient's lab results. 01/25/22 11:18 01/25/22 11:18 Radiology Impressions Coccyx X-Ray 01/25/22 10:00 Impression: Negative sacrum and coccyx. Pelvis X-Ray 01/25/22 10:00 Impression: Negative for fracture. Chest X-Ray 01/25/22 10:02 Impression: Cardiomegaly Head CT 01/25/22 10:05 IMPRESSION: 1. No evidence of intracranial hemorrhage or mass effect. 2. No acute intracranial findings. Laboratory Results WBC 7.6 10^3/uL (4.0-10.0) 01/25/22 11:18 RBC 4.41 10^6/uL (4.1-5.3) 01/25/22 11:18 Hgb 11.2 g/dL (11.5-15.3) L 01/25/22 11:18 Hct 37.0 % (37.0-47.0) 01/25/22 11:18 MCV 83.9 fl (81-99) 01/25/22 11:18 MCH 25.4 pg (28.0-34.0) L 01/25/22 11:18 MCHC 30.3 g/dL (30.0-36.0) 01/25/22 11:18 RDW 14.2 % (12.1-15.1) 01/25/22 11:18 Plt Count 198 10^3/cmm (130-400) 01/25/22 11:18 MPV 10.8 fL (7.4-10.4) H 01/25/22 11:18 Neut % (Auto) 61.8 % 01/25/22 11:18 Lymph % (Auto) 31.4 % 01/25/22 11:18 [place] % (Auto) 5.1 % 01/25/22 11:18 Eos % (Auto) 0.9 % 01/25/22 11:18 Baso % (Auto) 0.7 % 01/25/22 11:18 Neut # (Auto) 4.69 10^3/uL (1.8-7.7) 01/25/22 11:18 Lymph # (Auto) 2.4 10^3/uL (0.8-4.8) 01/25/22 11:18 [place] # (Auto) 0.4 10^3/uL (0.2-0.9) 01/25/22 11:18 Eos # (Auto) 0.1 10^3/uL (0.0-0.8) 01/25/22 11:18 Baso # (Auto) 0.1 10^3/uL (0.0-0.1) 01/25/22 11:18 Nucleated RBC % (auto) 0 % 01/25/22 11:18 Nucleated RBCs # 0.0 /100WBC 01/25/22 11:18 Sodium 142 mmol/L (136-145) 01/25/22 11:18 Potassium 3.8 mmol/L (3.5-5.1) 01/25/22 11:18 Chloride 105 mmol/L (98-107) 01/25/22 11:18 Carbon Dioxide 23 mmol/L (22-29) 01/25/22 11:18 Anion Gap 17.8 (5-19) 01/25/22 11:18 BUN 21 mg/dL (8-23) 01/25/22 11:18 Creatinine 0.6 mg/dL (0.5-0.9) 01/25/22 11:18 GFR Calculation 101.6 mL/min (90-130) 01/25/22 11:18 Glucose 100 mg/dL (65-115) 01/25/22 11:18 Calculated Osmolality 297 mOsm/kg (285-295) H 01/25/22 11:18 Calcium 9.3 mg/dL (8.5-10.5) 01/25/22 11:18 Total Bilirubin 0.2 mg/dL (0.15-1.2) 01/25/22 11:18 AST 15 U/L (0-32) 01/25/22 11:18 ALT 11 U/L (0-33) 01/25/22 11:18 Alkaline Phosphatase 117 U/L (35-105) H 01/25/22 11:18 Total Protein 7.3 g/dL (6.6-8.7) 01/25/22 11:18 Albumin 4.3 g/dL (3.5-5.2) 01/25/22 11:18 Globulin 3.0 g/dL (1.3-4.6) 01/25/22 11:18 Urine Color Light yellow (Yellow) 01/25/22 12:20 Urine Appearance Clear (CLEAR) 01/25/22 12:20 Urine pH 5 (5-7) 01/25/22 12:20 Ur Specific [place] 1.005 (1.005-1.030) 01/25/22 12:20 Urine Protein Neg (Negative) 01/25/22 12:20 Urine Glucose (UA) Norm (Normal) 01/25/22 12:20 Urine Ketones Negative (Negative) 01/25/22 12:20 Urine Blood Neg (Negative) 01/25/22 12:20 Urine Nitrate Negative (Negative) 01/25/22 12:20 Urine Bilirubin Neg (Negative) 01/25/22 12:20 Urine Urobilinogen Neg mg/dL (Negative) 01/25/22 12:20 Ur Leukocyte Esterase Negative (Negative) 01/25/22 12:20 Discharge Plan Discharge Patient Disposition: Home Clinical Impression: Fall Condition: Stable Prescriptions: No Action carbamazepine [Tegretol] 200 mg tablet 200 mg PO BID Qty: 60 2RF medroxyprogesterone 2.5 mg tablet 2.5 mg PO DAILY cholecalciferol (vitamin D3) 1,250 mcg (50,000 unit) capsule 50,000 unit PO DAILY methocarbamol 750 mg tablet 750 mg PO Q8H PRN trazodone 50 mg tablet 50 mg PO DAILY tramadol 50 mg tablet 50 mg PO QID estradiol [Estrace] 1 mg tablet 1 mg PO DAILY levothyroxine 100 mcg capsule 100 mcg PO DAILY lisinopril 2.5 mg tablet 2.5 mg PO DAILY lovastatin 40 mg tablet 40 mg PO DAILY pregabalin [Lyrica] 100 mg capsule 100 mg PO BID metformin 1,000 mg tablet 1,000 mg PO BID omeprazole 40 mg capsule,delayed release(DR/EC) 40 mg PO DAILY pioglitazone [Actos] 45 mg tablet 45 mg PO DAILY azelastine 137 mcg (0.1 %) aerosol,spray 1 spray INTRANASAL DAILY [place] 0.7 % drops 1 drop ophthalmic (eye) DAILY dicyclomine 10 mg capsule 10 mg PO TID loratadine 10 mg capsule 10 mg PO DAILY fluticasone propionate 50 mcg/actuation spray,suspension 2 spray intranasal DAILY Rx Instructions: administer into each nostril zolpidem [Ambien CR] 6.25 mg tablet,ext release multiphase PO .Q HS (DME) Diabetic shoes with molded inserts See Rx Instructions .Route .MEDSUPPLY Qty: 1 0RF Rx Instructions: As directed J P & O mupirocin 2 % ointment 1 applic topical BID 14 Days Qty: 15 0RF diclofenac sodium [Voltaren Arthritis Pain] 1 % gel 4 g topical QID Qty: 100 1RF Rx Instructions: apply to single knee, ankle, foot; for foot includes sole/toes/top of foot meloxicam 15 mg tablet 15 mg PO DAILY Qty: 90 0RF hydroxychloroquine 200 mg tablet 200 mg PO BID Qty: 60 3RF fluoxetine 20 mg capsule 20 mg PO DAILY Qty: 30 2RF topiramate [Topamax] 25 mg tablet 50 mg PO DAILY Qty: 60 2RF ibuprofen 800 mg tablet 800 mg PO Q8H PRN (Reason: pain) Qty: 30 0RF Discharge Orders: Discharge ED (Routine); Ordered 01/25/22 Ordered By: Thor Johnson Referrals: Heriberto Thomson [Primary Care Provider] - Discharge Diet: Usual diet Discharge Activity: Increase activity as tolerated Patient Instructions: Opioid Safety, Pain Management Activity Restrictions/Additional Instructions: You were seen today for symptoms after your fall. X-rays and CTs were all negative. Your laboratory tests were unremarkable. You can use Tylenol in addition to meloxicam you are previously prescribed for discomfort. You can also use tramadol that you have been previously prescribed. Follow-up with your primary care doctor as needed. Coding Level of Care Code ED Site Engineer for Tedg Fwd Exam Comprehensive
--- NOTE | 2022-01-25 11:11 | PC.NURSE ---
This nurse attempted to obtain a covid and flu swap from the patient and the patient denied both. Provider made aware.
[2022-01-25 11:24] LABS: Basophils # 0.1 10^3/uL (0.0-0.1); Basophils % 0.7 %; Eosinophils # 0.1 10^3/uL (0.0-0.8); Eosinophils % 0.9 %; Hemoglobin 11.2 g/dL (11.5-15.3); Lymphocytes # 2.4 10^3/uL (0.8-4.8); Lymphocytes % 31.4 %; Mean Corpuscular HGB Conc 30.3 g/dL (30.0-36.0); Mean Corpuscular Hemoglobin 25.4 pg (28.0-34.0); Mean Corpuscular Volume 83.9 fl (81-99); Mean Platelet Volume 10.8 fL (7.4-10.4); Monocytes # 0.4 10^3/uL (0.2-0.9); Monocytes % 5.1 %; Neutrophils # 4.69 10^3/uL (1.8-7.7); Neutrophils % 61.8 %; Nucleated Red Blood Cells % 0 %; Platelet Count 198 10^3/cmm (130-400); Red Blood Count 4.41 10^6/uL (4.1-5.3); Red Cell Distribution Width 14.2 % (12.1-15.1); White Blood Count 7.6 10^3/uL (4.0-10.0)
--- NOTE | 2022-01-25 11:41 | ECG_ITS ---
[facility] Test Date: 2022-01-25 Pat Name: Jaylin Granados Department: Room: Gender: Female Arboreal Scientist: : [id number] Requested By: Thor Schulte Order Number: [id number] Yanely MD: Roseann Leyva M.D. Measurements Intervals [place] Rate: 73 P: 18 AR: 150 QRS: 12 QRSD: 102 T: 26 QT: 428 QTc: 472 Interpretive Statements SINUS RHYTHM NONSPECIFIC T-WAVE ABNORMALITY No previous ECG available for comparison Electronically Signed On 01-26-2022 0:02:20 RESEARCH NURSE by Roseann Leyva M.D. [id number]
[2022-01-25 11:42] LABS: Alanine Aminotransferase 11 U/L (0-33); Albumin Level 4.3 g/dL (3.5-5.2); Alkaline Phosphatase 117 U/L (35-105); Anion Gap 17.8 (5-19); Aspartate Amino Transferase 15 U/L (0-32); Blood Urea Nitrogen 21 mg/dL (8-23); Calcium 9.3 mg/dL (8.5-10.5); Carbon Dioxide 23 mmol/L (22-29); Chloride 105 mmol/L (98-107); Glomerular Filtration Rate 101.6 mL/min (90-130); Glucose 100 mg/dL (65-115); Osmolality Calculated 297 mOsm/kg (285-295); Potassium 3.8 mmol/L (3.5-5.1); Sodium 142 mmol/L (136-145); Total Bilirubin 0.2 mg/dL (0.15-1.2); Total Protein 7.3 g/dL (6.6-8.7)
[2022-01-25 12:29] LABS: Add Urine Microscopic? NO; Charge for UA Resulting for Rev
[2022-01-25 12:33] LABS: Bilirubin Urine Neg (Negative); Blood Urine Neg (Negative); Glucose Urine UA Norm (Normal); Ketones Urine Negative (Negative); Leukocyte Esterase Urine Negative (Negative); Nitrate Urine Negative (Negative); Protein Urine Neg (Negative); Specific Gravity, Urine 1.005 (1.005-1.030); Urine Appearance Clear (CLEAR); Urine Color Light Yellow (Yellow); Urobilinogen Urine Neg (Negative); pH Urine 5 (5-7)
== END 2022-01-25 12:50 | disposition home or self-care (01) ==
PROVIDERS: Emergency Provider Family Medicine; PCP Family Medicine
DX: Z03.89 Encounter for observation for other suspected diseases and conditions ruled out (principal); W18.30XA Fall on same level, unspecified, initial encounter; E78.5 Hyperlipidemia, unspecified; I10 Essential (primary) hypertension; E11.9 Type 2 diabetes mellitus without complications; Z79.84 Long term (current) use of oral hypoglycemic drugs
CPT/HCPCS: 36415; 70450; 71045; 72170; 72220; 80053; 81003; 85025; 93005; 99285

== ENCOUNTER 2022-04-11 11:44 | Emergency (ER) | payer MEDICARE, MEDICAID, SELFPAY ==
[2022-04-11 11:54] VITALS: BP 160/80; PULSE 63; RESP 15; TEMP 36.7; O2SAT 97; BMI 51.1
[2022-04-11 13:10] LABS: Add Urine Microscopic? NO; Charge for UA Resulting for Rev
--- NOTE | 2022-04-11 13:19 | CT_ITS ---
WS: [id number] CT ABDOMEN AND PELVIS WITH CONTRAST HISTORY: diffuse abdominal pain TECHNIQUE: Imaging performed of the abdomen and pelvis with IV contrast. Single phase imaging of the abdomen. Coronal and sagittal reformats are submitted. All CT scans at [facility] use at [address] one of these dose optimization techniques: automated exposure control; mA and/or kV adjustment per patient size (includes targeted exams where dose is matched to clinical indication); or iterative re construction. IV CONTRAST: Omnipaque 350; 100 mL IV. Oral contrast: No DLP: 1319.23 mGy.cm COMPARISON: 10/18/2018 Lower thorax: Lung bases are clear. Heart is normal size. Small hiatal hernia. Liver/biliary system: Liver is enlarged. Liver measures 21 cm in length. No mass or bile duct dilatat ion. Gallbladder: Normal. No gallstones or wall thickening. No pericholecystic fluid. Pancreas: Normal size pancreas and pancreatic duct. No adjacent inflammation. Spleen: Normal size spleen. No mass or infarct. Adrenal glands: Fat-containing RIGHT adrenal mass measures 3.5 x 2.4 cm. Consistent with an adeno juliette lipoma. No change in size since 10/18/2018. Normal LEFT adrenal gland. Right kidney: Normal size kidney. Fat-containing lesion posterior upper pole is unchanged. Probably a n angiomyolipoma. No obstruction. Left kidney: There are a few scattered too small to characterize hypodensities. Aorta: Mild atherosclerosis with no aneurysm. Mild negron's hook deformity of the celiac axis. Lymphadenopathy: None. Free fluid: None. GI tract: Normally distended stomach. Mild stomach wall thickening is probably due to underdistention . No adjacent inflammation. No small bowel obstruction. Numerous diverticula in the distal colon. The re is a soft tissue mass in the RIGHT lower quadrant which is contiguous with the colon. This needs t o be further evaluated for neoplasm versus focal inflammatory stricture with inflammation. No additio nal lymph nodes identified within this location. The appendix is partially visualized and normal. Mar ked fecal retention towards the rectum. Abdominal wall: Unremarkable abdominal wall. No hernia. Pelvis: No free fluid or adenopathy within the pelvis. Bones: Unremarkable. CT/CT abdomen pelvis w con* [id number] IMPRESSION: 1. RIGHT lower quadrant soft tissue inflammatory mass is associated with the s igmoid colon. There are numerous adjacent diverticula in the lumen is very narr ow. Differential includes focal acute diverticulitis, colitis and underlying ne oplasm. Due to the marked narrowing of the lumen patient is at risk for perfora tion. Recommend follow-up colonoscopy to exclude neoplasm. 2. Numerous diverticula throughout the distal colon with constipation. 3. RIGHT adrenal myelolipoma. 4. No ascites. 5. 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
--- NOTE | 2022-04-11 13:20 | ED_ITS ---
HPI - Abdominal Pain General: Chief Complaint: Abdominal Pain Stated Complaint: abd pain Time Seen by Provider: 04/11/22 12:58 Source: patient Mode of arrival: wheelchair Limitations: no limitations History of Present Illness: Patient is a 62-year-old morbidly obese female here for evaluation of abdominal pain. Patient states abdominal pain initially began 2 days ago and was sent her to her lower abdomen/pelvis/suprapubic region and off to the right however patient states since onset it has now moved upward and affecting her upper abdomen/epigastric region. Patient denies nausea, vomiting, diarrhea. She states her last bowel movement was 2 days ago. She states she has a history of diverticulitis but cannot tell me if this feels similar to previous flares. States she is having some urinary frequency but denies dysuria, hematuria, urgency, or hesitancy. She has not been running fevers. Denies flank pain. She denies any black or tarry stools. MD elicited complaint: abdominal pain Pertinent past history: diverticulitis Onset (ago): day(s) Pain Consistency: constant Location: Diffuse Radiation: none Migration to: no migration Exacerbating factors: nothing Relieving factors: nothing Associated Symptoms: Reports constipation (last BM 2 days ago); Denies chills, dysuria, fever(s), hematochezia, hematuria, hematemesis, melena, nausea and vomiting Review of Systems Const: Denies: fever(s), chills, body aches, fatigue or malaise Card: Denies: chest pain Resp: Denies: dyspnea GI: Reports: abdominal pain and constipation (last BM 2 days ago); Denies: nausea, vomiting, hematemesis, hematochezia or melena : Reports: urinary frequency; Denies: flank pain, difficulty voiding, dysuria, urinary urgency, urinary hesitancy or hematuria Musc: Denies: neck pain, back pain, extremity pain or joint pain Skin/Breast: Denies: rash Neuro: Denies: headache(s), numbness in extremities, weakness in extremities or sensory changes PFSH ED PFSH: Medical History MUNDO positive Arthralgia Bipolar disorder Fatigue Fibromyalgia Homelessness unspecified Hyperlipidemia Hypertension Major depressive disorder, recurrent, in partial remission Psychiatric care Sleep apnea Type 2 diabetes mellitus with diabetic polyneuropathy Surgical History H/O tubal ligation Family History Family/Other Diabetes Other CAD (coronary artery disease) Cancer Hyperlipidemia Rheumatoid arthritis Denies family history of Lupus Clotting disorder Dementia Psychiatric illness Chronic kidney disease (CKD) Suicide Anesthesia complication Bleeding disorder Family history of premature coronary artery disease Lung disease Hypertension Stroke Social History Smoking and tobacco status: never smoked Alcohol intake: former Current occupational status: disabled Physical Exam Const: COMMON NORMALS: no acute distress, patient oriented x3, no limitations and alert GENERAL APPEARANCE: cooperative NUTRITIONAL APPEARANCE: obese morbidly obese ORIENTATION/CONSCIOUSNESS: Yes awake, Yes oriented to person, Yes oriented to place and Yes oriented to time HENMT: COMMON NORMALS: normocephalic and atraumatic HEAD & SCALP: normal to inspection, normocephalic and atraumatic Resp: COMMON NORMALS: normal respiratory effort and clear to auscultation bilaterally AUSCULTATION: clear to auscultation bilaterally Cardio: COMMON NORMALS: regular rate and regular rhythm RATE: regular rate RHYTHM: regular rhythm GI: COMMON NORMALS: Soft to palpation INSPECTION: Yes normal to inspection AUSCULTATION: Yes normoactive bowel sounds PALPATION: Yes Soft to palpation OTHER: diffuse abdominal pain-exam limited secondary to body habitus and patient seated in a wheelchair in a vertical flow room : COMMON NORMALS: Yes no CVA tenderness BLADDER/KIDNEY EXAM: Yes no CVA tenderness Back/Pelvis: COMMON NORMALS: no CVA tenderness Extremity: GENERAL: Yes normal exam except as noted Neuro: CAPRICE COMA SCALE: document GCS findings [place] coma scale eye opening: Spontaneous [place] coma scale verbal response: Orientated [place] coma scale motor response: Obey commands [place] coma scale total score: 15 COMMON NORMALS: patient oriented x3 SENSORIUM/ORIENTATION: Yes alert, Yes oriented to person, Yes oriented to place and Yes oriented to time Skin: COMMON NORMALS: no rashes or lesions noted GENERAL SKIN EXAM: no rashes or lesions noted Course Consultations: Consultation #1: Dr. Diana-personally viewed patient's CT scan and recommends placing her on 14 days of Augmentin, normal diet, and will follow up in office Vital Signs: Vital signs: Vital Signs Temperature 98.0 F 04/11/22 11:54 Pulse Rate 63 04/11/22 11:54 Respiratory Rate 15 04/11/22 11:54 Blood Pressure 160/80 04/11/22 11:54 Pulse Oximetry 97 04/11/22 11:54 Oxygen Delivery Me thod 04/11/22 11:54 MDM - Abdominal Pain Medical Decision Making Patient is a 62-year-old female here for complaints of abdominal pain over the past 2 to 3 days. She is not having any vomiting. She had 1 small bowel movement 2 days ago. She is passing flatulence. Vital signs are stable. Blood work overall is unremarkable. CT scan showing a right lower quadrant soft tissue inflammatory mass associated with her sigmoid colon that the radiologist stated could be secondary to focal acute diverticulitis, colitis, or underlying neoplasm. Radiologist stated to due to the marked narrowing of the lumen patient is at risk for perforation. I discussed CT scan with Dr. Diana who personally reviewed scan and recommends placing patient on 14 days of Augmentin and he will follow-up in office. Patient was given strict return ED precautions in regards to obstruction/perforation she voiced understanding. Lab Data 04/11/22 13:25 04/11/22 13:25 Labs/Radiology: Radiology Impressions Abdomen/Pelvis CT 04/11/22 13:19 IMPRESSION: 1. RIGHT lower quadrant soft tissue inflammatory mass is associated with the sigmoid colon. There are numerous adjacent diverticula in the lumen is very narrow. Differential includes focal acute diverticulitis, colitis and underlying neoplasm. Due to the marked narrowing of the lumen patient is at risk for perforation. Recommend follow-up colonoscopy to exclude neoplasm. 2. Numerous diverticula throughout the distal colon with constipation. 3. RIGHT adrenal myelolipoma. 4. No ascites. 5. 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 Laboratory Results WBC 9.8 10^3/uL (4.0-10.0) 04/11/22 13:25 RBC 4.00 10^6/uL (4.1-5.3) L 04/11/22 13:25 Hgb 10.3 g/dL (11.5-15.3) L 04/11/22 13:25 Hct 34.6 % (37.0-47.0) L 04/11/22 13:25 MCV 86.5 fl (81-99) 04/11/22 13:25 MCH 25.8 pg (28.0-34.0) L 04/11/22 13:25 MCHC 29.8 g/dL (30.0-36.0) L 04/11/22 13:25 RDW 14.7 % (12.1-15.1) 04/11/22 13:25 Plt Count 193 10^3/cmm (130-400) 04/11/22 13:25 MPV 11.4 fL (7.4-10.4) H 04/11/22 13:25 Neut % (Auto) 69.0 % 04/11/22 13:25 Lymph % (Auto) 23.2 % 04/11/22 13:25 [place] % (Auto) 6.9 % 04/11/22 13:25 Eos % (Auto) 0.3 % 04/11/22 13:25 Baso % (Auto) 0.4 % 04/11/22 13:25 Neut # (Auto) 6.75 10^3/uL (1.8-7.7) 04/11/22 13:25 Lymph # (Auto) 2.3 10^3/uL (0.8-4.8) 04/11/22 13:25 [place] # (Auto) 0.7 10^3/uL (0.2-0.9) 04/11/22 13:25 Eos # (Auto) 0.0 10^3/uL (0.0-0.8) 04/11/22 13:25 Baso # (Auto) 0.0 10^3/uL (0.0-0.1) 04/11/22 13:25 Nucleated RBC % (auto) 0 % 04/11/22 13:25 Nucleated RBCs # 0.0 /100WBC 04/11/22 13:25 Sodium 139 mmol/L (136-145) 04/11/22 13:25 Potassium 4.0 mmol/L (3.5-5.1) 04/11/22 13:25 Chloride 105 mmol/L (98-107) 04/11/22 13:25 Carbon Dioxide 23 mmol/L (22-29) 04/11/22 13:25 Anion Gap 15.0 (5-19) 04/11/22 13:25 BUN 11 mg/dL (8-23) 04/11/22 13:25 Creatinine 0.5 mg/dL (0.5-0.9) 04/11/22 13:25 GFR Calculation 125.4 mL/min (90-130) 04/11/22 13:25 Glucose 109 mg/dL (65-115) 04/11/22 13:25 Calculated Osmolality 288 mOsm/kg (285-295) 04/11/22 13:25 Calcium 9.0 mg/dL (8.5-10.5) 04/11/22 13:25 Total Bilirubin 0.4 mg/dL (0.15-1.2) 04/11/22 13:25 AST 19 U/L (0-32) 04/11/22 13:25 ALT 10 U/L (0-33) 04/11/22 13:25 Alkaline Phosphatase 101 U/L (35-105) 04/11/22 13:25 Total Protein 7.4 g/dL (6.6-8.7) 04/11/22 13:25 Albumin 4.1 g/dL (3.5-5.2) 04/11/22 13:25 Globulin 3.3 g/dL (1.3-4.6) 04/11/22 13:25 Lipase 10 U/L (13-60) L 04/11/22 13:25 Urine Color Yellow (Yellow) 04/11/22 13:02 Urine Appearance Clear (CLEAR) 04/11/22 13:02 Urine pH 7 (5-7) 04/11/22 13:02 Ur Specific [place] 1.010 (1.005-1.030) 04/11/22 13:02 Urine Protein Neg (Negative) 04/11/22 13:02 Urine Glucose (UA) Norm (Normal) 04/11/22 13:02 Urine Ketones Negative (Negative) 04/11/22 13:02 Urine Blood Neg (Negative) 04/11/22 13:02 Urine Nitrate Negative (Negative) 04/11/22 13:02 Urine Bilirubin Neg (Negative) 04/11/22 13:02 Urine Urobilinogen 1 mg/dL (Negative) H 04/11/22 13:02 Ur Leukocyte Esterase Negative (Negative) 04/11/22 13:02 Discharge Plan Discharge Patient Disposition: Home Clinical Impression: Mass of colon Condition: Stable Prescriptions: New amoxicillin-pot clavulanate 875-125 mg tablet 1 tab PO BID 14 Days Qty: 28 0RF No Action carbamazepine [Tegretol] 200 mg tablet 200 mg PO BID Qty: 60 2RF medroxyprogesterone 2.5 mg tablet 2.5 mg PO DAILY cholecalciferol (vitamin D3) 1,250 mcg (50,000 unit) capsule 50,000 unit PO DAILY methocarbamol 750 mg tablet 750 mg PO Q8H PRN trazodone 50 mg tablet 25 mg PO DAILY tramadol 50 mg tablet 50 mg PO QID estradiol [Estrace] 1 mg tablet 1 mg PO DAILY levothyroxine 100 mcg capsule 100 mcg PO DAILY lisinopril 2.5 mg tablet 2.5 mg PO DAILY lovastatin 40 mg tablet 40 mg PO DAILY pregabalin [Lyrica] 100 mg capsule 100 mg PO BID metformin 1,000 mg tablet 1,000 mg PO BID omeprazole 40 mg capsule,delayed release(DR/EC) 40 mg PO DAILY pioglitazone [Actos] 45 mg tablet 45 mg PO DAILY azelastine 137 mcg (0.1 %) aerosol,spray 1 spray INTRANASAL DAILY [place] 0.7 % drops 1 drop ophthalmic (eye) DAILY dicyclomine 10 mg capsule 10 mg PO TID loratadine 10 mg capsule 10 mg PO DAILY fluticasone propionate 50 mcg/actuation spray,suspension 2 spray intranasal DAILY Rx Instructions: administer into each nostril zolpidem [Ambien CR] 6.25 mg tablet,ext release multiphase PO .Q HS (DME) Diabetic shoes with molded inserts See Rx Instructions .Route .MEDSUPPLY Qty: 1 0RF Rx Instructions: As directed [facility] mupirocin 2 % ointment 1 applic topical BID 14 Days Qty: 15 0RF diclofenac sodium [Voltaren Arthritis Pain] 1 % gel 4 g topical QID Qty: 100 1RF Rx Instructions: apply to single knee, ankle, foot; for foot includes sole/toes/top of foot meloxicam 15 mg tablet 15 mg PO DAILY Qty: 90 0RF hydroxychloroquine 200 mg tablet 200 mg PO DAILY fluoxetine [Prozac] 40 mg capsule 40 mg PO DAILY Qty: 30 2RF topiramate [Topamax] 25 mg tablet 50 mg PO DAILY Qty: 60 2RF ibuprofen 800 mg tablet 800 mg PO Q8H PRN (Reason: pain) Qty: 30 0RF Discharge Orders: Discharge ED (Routine); Ordered 04/11/22 Ordered By: Crystal Orozco Referrals: Florin Diana DO [Physician] - Heriberto Thomson [Primary Care Provider] - Activity Restrictions/Additional Instructions: As we discussed on your CT scan they did see a right lower quadrant inflammatory mass that the radiologist stated could be secondary to diverticulitis, colitis, or underlying neoplasm/malignancy. I spoke to our general surgeon Dr. Diana on-call who recommended placing you on 14 days of Augmentin. You have been provided this prescription. I have placed your information with case management so they can get you a follow-up appointment with him. As we discussed with the narrowing of your colon you could be at risk for obstruction and/or perforation. You need to return to the emergency department for severe or worsening abdominal pains, inability to have a bowel movement, repetitive episodes of vomiting, fevers, generally feeling worse or unwell, or any other concerns you may have. Coding Level of Care Code ED [employer] for [employer]
[2022-04-11 13:24] LABS: Bilirubin Urine Neg (Negative); Blood Urine Neg (Negative); Glucose Urine UA Norm (Normal); Ketones Urine Negative (Negative); Leukocyte Esterase Urine Negative (Negative); Nitrate Urine Negative (Negative); Protein Urine Neg (Negative); Urine Appearance Clear (CLEAR); Urine Color Yellow (Yellow); Urobilinogen Urine 1 mg/dL (Negative); pH Urine 7 (5-7)
[2022-04-11 13:40] LABS: Basophils % 0.4 %; Eosinophils % 0.3 %; Hematocrit 34.6 % (37.0-47.0); Hemoglobin 10.3 g/dL (11.5-15.3); Lymphocytes # 2.3 10^3/uL (0.8-4.8); Lymphocytes % 23.2 %; Mean Corpuscular HGB Conc 29.8 g/dL (30.0-36.0); Mean Corpuscular Hemoglobin 25.8 pg (28.0-34.0); Mean Corpuscular Volume 86.5 fl (81-99); Mean Platelet Volume 11.4 fL (7.4-10.4); Monocytes # 0.7 10^3/uL (0.2-0.9); Monocytes % 6.9 %; Neutrophils # 6.75 10^3/uL (1.8-7.7); Nucleated Red Blood Cells % 0 %; Platelet Count 193 10^3/cmm (130-400); Red Cell Distribution Width 14.7 % (12.1-15.1); White Blood Count 9.8 10^3/uL (4.0-10.0)
[2022-04-11 14:02] LABS: Alanine Aminotransferase 10 U/L (0-33); Albumin Level 4.1 g/dL (3.5-5.2); Alkaline Phosphatase 101 U/L (35-105); Aspartate Amino Transferase 19 U/L (0-32); Blood Urea Nitrogen 11 mg/dL (8-23); Carbon Dioxide 23 mmol/L (22-29); Chloride 105 mmol/L (98-107); Globulin 3.3 g/dL (1.3-4.6); Glomerular Filtration Rate 125.4 mL/min (90-130); Glucose 109 mg/dL (65-115); Lipase 10 U/L (13-60); Osmolality Calculated 288 mOsm/kg (285-295); Sodium 139 mmol/L (136-145); Total Bilirubin 0.4 mg/dL (0.15-1.2); Total Protein 7.4 g/dL (6.6-8.7)
[2022-04-11] MEDS: iohexol 350 mg/mL 500 mL Btl (per mL) IV (14:42)
[2022-04-11 16:06] VITALS: BP 153/74; PULSE 65; TEMP 36.7; O2SAT 97
--- NOTE | 2022-04-12 10:13 | DCPLANNER ---
Addendum entered by Sandra Marquez 05/13/22 09:28: This appointment was rescheduled Addendum entered by Sandra Marquez 04/22/22 07:55: Patient has a follow up appointment scheduled for Wednesday, May 11, 2022 at 1:[address] Diana at general surgery. Clinic will call patient with appointment information. Original Note: manager community had message to schedule a follow up appointment for patient with general surgery. manager community sent patients information to the front office staff at general surgery. Patients information will be printed and reviewed. Clinic will call patient with appointment information.
== END 2022-04-11 16:04 | disposition home or self-care (01) ==
PROVIDERS: Emergency Provider Physician Assistant; PCP Family Medicine
DX: K63.9 Disease of intestine, unspecified (principal); E78.5 Hyperlipidemia, unspecified; I10 Essential (primary) hypertension; E11.9 Type 2 diabetes mellitus without complications
CPT/HCPCS: 36415; 74177; 80053; 81003; 83690; 85025; 99285; Q9967

== ENCOUNTER 2022-05-30 14:27 | Outpatient (CLI) | payer MEDICARE, MEDICAID, SELFPAY ==
--- NOTE | 2022-05-30 14:49 | MM_ITS ---
WS: [id number] BILATERAL 3D TOMOSYNTHESIS DIGITAL SCREENING MAMMOGRAM WITH CAD CLINICAL INFORMATION: SCREENING HISTORY: Screening mammogram. No current complaints. COMPARISON: 2014 TECHNIQUE: Bilateral CC and MLO views. FINDINGS: Fatty-replaced breasts bilaterally. No suspicious focal mass, asymmetry, calcifications, or oracle fusion middleware architect ural distortion. No evidence of malignancy. A few incidental punctate calcifications. MM/[place] [id number] IMPRESSION: BI-RADS: 2-Benign FOLLOW UP: 1 Year Follow-up Recommend return to annual screening mammography.
== END 2022-05-30 14:28 | disposition home or self-care (01) ==
LOC: RAD 14:30
PROVIDERS: PCP Family Medicine; Visit Provider Family Medicine
DX: Z12.31 Encounter for screening mammogram for malignant neoplasm of breast (principal)
CPT/HCPCS: 77063; 77067

== ENCOUNTER 2022-06-09 13:37 | Outpatient (CLI) | payer MEDICARE, MEDICAID, SELFPAY ==
[2022-06-09 14:33] LABS: Basophils # 0.1 10^3/uL (0.0-0.1); Basophils % 0.9 %; Eosinophils % 0.6 %; Hematocrit 37.3 % (37.0-47.0); Hemoglobin 11.6 g/dL (11.5-15.3); Lymphocytes # 2.4 10^3/uL (0.8-4.8); Lymphocytes % 34.8 %; Mean Corpuscular HGB Conc 31.1 g/dL (30.0-36.0); Mean Corpuscular Hemoglobin 26.3 pg (28.0-34.0); Mean Corpuscular Volume 84.6 fl (81-99); Mean Platelet Volume 11.2 fL (7.4-10.4); Monocytes # 0.3 10^3/uL (0.2-0.9); Monocytes % 4.4 %; Neutrophils # 4.03 10^3/uL (1.8-7.7); Nucleated Red Blood Cells % 0 %; Platelet Count 207 10^3/cmm (130-400); Red Blood Count 4.41 10^6/uL (4.1-5.3); Red Cell Distribution Width 13.6 % (12.1-15.1); White Blood Count 6.8 10^3/uL (4.0-10.0)
[2022-06-09 14:39] LABS: Erythrocyte Sedimentation Rate 16 mm/hr (0-15)
[2022-06-09 14:44] LABS: Alanine Aminotransferase 12 U/L (0-33); Albumin Level 4.6 g/dL (3.5-5.2); Alkaline Phosphatase 112 U/L (35-105); Anion Gap 14.1 (5-19); Aspartate Amino Transferase 14 U/L (0-32); Blood Urea Nitrogen 12 mg/dL (8-23); C Reactive Protein 5.6 mg/L (0.0-4.9); Calcium 9.3 mg/dL (8.5-10.5); Carbon Dioxide 26 mmol/L (22-29); Chloride 102 mmol/L (98-107); Globulin 3.3 g/dL (1.3-4.6); Glomerular Filtration Rate 85.1 mL/min (90-130); Glucose 96 mg/dL (65-115); Osmolality Calculated 286 mOsm/kg (285-295); Potassium 4.1 mmol/L (3.5-5.1); Sodium 138 mmol/L (136-145); Total Bilirubin 0.3 mg/dL (0.15-1.2); Total Protein 7.9 g/dL (6.6-8.7)
== END 2022-06-09 13:38 | disposition home or self-care (01) ==
LOC: LAB 13:45
PROVIDERS: PCP Family Medicine; Visit Provider Internal Medicine
DX: M25.50 Pain in unspecified joint (principal)
CPT/HCPCS: 36415; 80053; 85025; 85651; 86140

== ENCOUNTER → 2022-07-04 12:53 | Outpatient (BNVA) | payer MEDICARE, MEDICAID, SELFPAY | PROVIDERS: PCP Family Medicine; Visit Provider Internal Medicine | DX: D64.9 Anemia, unspecified (principal); R76.8 Other specified abnormal immunological findings in serum; M25.50 Pain in unspecified joint; G47.30 Sleep apnea, unspecified; Z79.899 Other long term (current) drug therapy | CPT/HCPCS: 36415; 80053; 82306; 82533; 82550; 82607; 83735; 84100; 84443; 85025; 85651; 86140; 99213 ==

== ENCOUNTER 2022-07-13 11:37 | Emergency (ER) | payer MEDICARE, MEDICAID, SELFPAY ==
[2022-07-13 11:47] VITALS: BP 146/60; PULSE 62; RESP 15; TEMP 36.7; O2SAT 98; BMI 51.5
--- NOTE | 2022-07-13 12:02 | W.ED.FALL ---
HPI - Fall General: Chief Complaint: Extremity Injury, Upper Stated Complaint: fall, body pain Time Seen by Provider: 07/13/22 11:57 Source: patient Mode of arrival: ambulatory Limitations: no limitations History of Present Illness: Patient is a 62-year-old female presents to ED today for evaluation following a fall. Patient states she accidentally tripped over her dog. She is complaining of pain to the right wrist and hand, low back, and chest wall. She denies striking her head or LOC. She does not complain of any neck pain. She has no shortness of breath or difficulty breathing. Patient has been ambulatory without difficulty or assistance since the fall. MD complaint: fall Onset (ago): hour(s) Fall from: standing Fall witnessed: no Place fall occurred: home Loss of consciousness: None Prolonged down time: no Symptoms prior to fall: none Context: tripped/slipped Location of injury: chest and back Location of injury - extremities: Left: hand Associated symptoms-after fall: Reports no associated symptoms and chest pain (anterior chest wall pain); Denies abdominal pain, headache(s), hematuria, lightheadedness or neck pain Review of Systems Eyes: Denies: change in vision, blurry vision, photophobia, eye discharge, floaters or seeing flashes ENMT: Denies: throat pain, odynophagia, ear or mastoid pain, ear discharge, nasal discharge, epistaxis or sinus pain Card: Reports: chest pain (anterior chest wall pain); Denies: palpitations, lightheadedness, syncope or pre-syncope Resp: Denies: dyspnea or pain on inspiration GI: Denies: abdominal pain : Denies: flank pain or hematuria Musc: Reports: back pain, extremity pain (L hand) and joint pain (L wrist); Denies: neck pain, extremity swelling, joint swelling, joint redness or joint warmth Skin/Breast: Reports: other (mild abrasions) Neuro: Denies: headache(s), numbness in extremities, weakness in extremities, sensory changes or dizziness PFSH ED PFSH: Medical History MUNDO positive Arthralgia Bipolar disorder Fatigue Fibromyalgia Homelessness unspecified Hyperlipidemia Hypertension Major depressive disorder, recurrent, in partial remission Psychiatric care Sleep apnea Type 2 diabetes mellitus with diabetic polyneuropathy Surgical History H/O tubal ligation Family History Family/Other Diabetes Other CAD (coronary artery disease) Cancer Hyperlipidemia Rheumatoid arthritis Denies family history of Lupus Clotting disorder Dementia Psychiatric illness Chronic kidney disease (CKD) Suicide Anesthesia complication Bleeding disorder Family history of premature coronary artery disease Lung disease Hypertension Stroke Social History Smoking and tobacco status: never smoked Alcohol intake: former Substance/Drug Use: never Current occupational status: disabled Physical Exam Const: COMMON NORMALS: no acute distress, average body habitus, patient oriented x3, no limitations and alert GENERAL APPEARANCE: cooperative NUTRITIONAL APPEARANCE: obese morbidly obese ORIENTATION/CONSCIOUSNESS: Yes awake, Yes oriented to person, Yes oriented to place and Yes oriented to time HENMT: COMMON NORMALS: normocephalic, atraumatic and TM's normal bilaterally HEAD & SCALP: normal to inspection, normocephalic and atraumatic; no Renteria's sign, no hematoma and no raccoon eyes FACE & SINUS: normal facial exam TYMPANIC MEMBRANE: TM's normal bilaterally MOUTH: other (no intraoral injuries noted) Eye: COMMON NORMALS: Equal, round and reactive pupils present and EOMs intact bilaterally GENERAL EYE: appearance normal, both eyes and all related structures and normal light reflex PUPIL: Yes Equal, round and reactive pupils present DIRECT OPHTHALMOSCOPY: Yes normal light reflex Neck/C-Spine: COMMON NORMALS: full ROM GENERAL: Yes normal visual inspection CERVICAL SPINE: Yes cervical ROM normal, No pain with cervical ROM, No Cervical spine tenderness, No step off deformity and No Paracervical muscle tenderness Chest: OTHER: mild tenderness to anterior chest wall/sternum with mild abrasions; no crepitus appreciated; normal lung sounds Resp: COMMON NORMALS: normal respiratory effort and clear to auscultation bilaterally AUSCULTATION: clear to auscultation bilaterally Cardio: COMMON NORMALS: regular rate and regular rhythm RATE: regular rate RHYTHM: regular rhythm GI: COMMON NORMALS: Normal to inspection, nondistended, normoactive bowel sounds present, Soft to palpation, non-tender, No hepatosplenomegaly present and no masses INSPECTION: Yes normal to inspection and No abdominal wall ecchymosis AUSCULTATION: Yes normoactive bowel sounds PALPATION: Yes Soft to palpation and Yes No hepatosplenomegaly present Back/Pelvis: THORACIC SPINE/UPPER BACK: Yes thoracic ROM normal, No pain with ROM and No thoracic spinal tenderness LUMBAR SPINE/LOWER BACK: Yes lumbar ROM normal, Yes lumbar spinal tenderness, Yes paraspinal muscle tenderness, No paraspinal muscle spasm and Yes straight leg raise negative bilaterally PELVIS: Yes buttocks normal SACROILIAC JOINTS: Yes SI joints normal SACRUM: no tenderness COCCYX: no tenderness Extremity: COMMON NORMALS: normal to inspection GENERAL: Yes normal exam except as noted LEFT UPPER EXTREMITY: Yes wrist Left wrist: Yes ROM (normal) and Yes neurovascular exam (normal) and Yes hand & digits (TTP radial hand w/o bony abnormalities) Left hand and digits: Yes neurovascular exam (normal) and Yes other (no pain directly over scaphoid) Neuro: RACHAEL COMA SCALE: document GCS findings [place] coma scale eye opening: Spontaneous Rachael coma scale verbal response: Orientated [place] coma scale motor response: Obey commands [place] coma scale total score: 15 COMMON NORMALS: patient oriented x3, CN's II-XII intact bilaterally, moves all extremities, no focal motor deficits, no sensory deficits noted and gait normal SENSORIUM/ORIENTATION: Yes alert, Yes oriented to person, Yes oriented to place and Yes oriented to time SPEECH: speech normal GAIT: Yes Normal gait present Skin: TRAUMA: abrasion and no lacerations Course Vital Signs: Vital signs: Vital Signs Temperature 98.1 F 07/13/22 11:47 Pulse Rate 62 07/13/22 11:47 Respiratory Rate 15 07/13/22 11:47 Blood Pressure 146/60 07/13/22 11:47 Pulse Oximetry 98 07/13/22 11:47 Oxygen Delivery Me thod Room Air 07/13/22 11:47 MDM - Fall Medical Decision Making XRs of her lumbar spine, sternum/CXR, and left wrist and hand are negative. Recommend follow-up with primary care next week for re-evaluation if symptoms do not seem to be improving with conservative treatments at home. Return ED precautions given. Lab Data Radiology Impressions Chest X-Ray 07/13/22 12:27 IMPRESSION: Unremarkable chest radiograph. Hand X-Ray 07/13/22 12:27 IMPRESSION: 1. No sign of fracture or other significant finding. Lumbar Spine X-Ray 07/13/22 12:27 IMPRESSION: 1. Degenerative changes and slight scoliosis. 2. No fracture or malalignment. Sternum X-Ray 07/13/22 12:27 IMPRESSION: 1. No sternal fracture or other significant finding. Wrist X-Ray 07/13/22 12:27 IMPRESSION: Negative left wrist. Discharge Plan Discharge Patient Disposition: Home Clinical Impression: Fall on same level from tripping Contusion of left hand Qualifiers: Encounter type: initial encounter Qualified Code(s): S60.222A - Contusion of left hand, initial encounter Contusion of lower back Qualifiers: Encounter type: initial encounter Qualified Code(s): S30.0XXA - Contusion of lower back and pelvis, initial encounter Sternal contusion Qualifiers: Encounter type: initial encounter Qualified Code(s): S20.219A - Contusion of unspecified front wall of thorax, initial encounter Condition: Stable Prescriptions: No Action carbamazepine [Tegretol] 200 mg tablet 200 mg PO BID Qty: 60 2RF medroxyprogesterone 2.5 mg tablet 2.5 mg PO DAILY cholecalciferol (vitamin D3) 1,250 mcg (50,000 unit) capsule 50,000 unit PO DAILY methocarbamol 750 mg tablet 750 mg PO Q8H PRN trazodone 50 mg tablet 25 mg PO DAILY tramadol 50 mg tablet 50 mg PO QID estradiol [Estrace] 1 mg tablet 1 mg PO DAILY levothyroxine 100 mcg capsule 100 mcg PO DAILY lisinopril 2.5 mg tablet 2.5 mg PO DAILY lovastatin 40 mg tablet 40 mg PO DAILY pregabalin [Lyrica] 100 mg capsule 100 mg PO BID metformin 1,000 mg tablet 1,000 mg PO BID omeprazole 40 mg capsule,delayed release(DR/EC) 40 mg PO DAILY pioglitazone [Actos] 45 mg tablet 45 mg PO DAILY azelastine 137 mcg (0.1 %) aerosol,spray 1 spray INTRANASAL DAILY [place] 0.7 % drops 1 drop ophthalmic (eye) DAILY dicyclomine 10 mg capsule 10 mg PO TID loratadine 10 mg capsule 10 mg PO DAILY fluticasone propionate 50 mcg/actuation spray,suspension 2 spray intranasal DAILY Rx Instructions: administer into each nostril zolpidem [Ambien CR] 6.25 mg tablet,ext release multiphase PO .Q HS (DME) Diabetic shoes with molded inserts See Rx Instructions .Route .MEDSUPPLY Qty: 1 0RF Rx Instructions: As directed [facility] [employer] diclofenac sodium [Voltaren Arthritis Pain] 1 % gel 4 g topical QID Qty: 100 1RF Rx Instructions: apply to single knee, ankle, foot; for foot includes sole/toes/top of foot hydroxychloroquine 200 mg tablet 200 mg PO DAILY fluoxetine [Prozac] 40 mg capsule 40 mg PO DAILY Qty: 30 2RF topiramate [Topamax] 25 mg tablet 50 mg PO DAILY Qty: 60 2RF meloxicam 15 mg tablet 15 mg PO DAILY Qty: 90 0RF magnesium oxide 400 mg magnesium capsule 400 mg PO DAILY Qty: 7 0RF ibuprofen 800 mg tablet 800 mg PO Q8H PRN (Reason: pain) Qty: 30 0RF Discharge Orders: Discharge ED (Routine); Ordered 07/13/22 Ordered By: Crystal Orozco Referrals: Heriberto Thomson [Primary Care Provider] - Coding Level of Care 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
--- NOTE | 2022-07-13 12:27 | XR_ITS ---
WS: [id number] Exam: XR lumbar spine 2-3V* [id number] Date/Time of Exam: 07/13/2022 12:33 PM Reason For Exam: fall No acute fracture or dislocation. Spondylosis noted. Facet DJD at L5-S1. Slight levoscoliosis. XR/XR lumbar spine 2-3V* [id number] IMPRESSION: 1. Degenerative changes and slight scoliosis. 2. No fracture or malalignment.
--- NOTE | 2022-07-13 12:27 | XR_ITS ---
WS: [id number] Exam: XR sternum min 2V [id number] Date/Time of Exam: 07/13/2022 12:33 PM Reason For Exam: fall No sternal fracture or dislocation. Adjacent soft tissues are unremarkable. XR/XR sternum min 2V [id number] IMPRESSION: 1. No sternal fracture or other significant finding.
--- NOTE | 2022-07-13 12:27 | XR_ITS ---
WS: [id number] Exam: XR wrist LT w scaphoid [id number] Date/Time of Exam: 07/13/2022 12:33 PM Comparison 05/05/2021 Reason For Exam: fall There are no fractures, soft tissue swelling, or unusual calcifications. The wrist shows normal bony alignment. There is no irregularity of the bony architecture. XR/XR wrist LT w scaphoid [id number] IMPRESSION: Negative left wrist.
--- NOTE | 2022-07-13 12:27 | XR_ITS ---
WS: [id number] Exam: XR hand LT min 3V* [id number] Date/Time of Exam: 07/13/2022 12:33 PM Reason For Exam: fall Comparison 05/05/2021. No acute fracture or dislocation. No soft tissue foreign bodies are identified. XR/XR hand LT min 3V* [id number] IMPRESSION: 1. No sign of fracture or other significant finding.
--- NOTE | 2022-07-13 12:27 | XR_ITS ---
WS: [id number] Exam: XR chest 1V portable [id number] Date/Time of Exam: 07/13/2022 12:33 PM Reason For Exam: fall Comparison 01/25/2022. Findings: The lungs are clear and fully expanded. Costophrenic angles are sharp. No infiltrates. Bronchovascula r relief appears normal. Cardiac silhouette is unremarkable. Bony elements are intact. XR/XR chest 1V portable [id number] IMPRESSION: Unremarkable chest radiograph.
== END 2022-07-13 13:37 | disposition home or self-care (01) ==
PROVIDERS: Emergency Provider Physician Assistant; PCP Family Medicine
DX: S60.222A Contusion of left hand, initial encounter (principal); S30.0XXA Contusion of lower back and pelvis, initial encounter; S20.219A Contusion of unspecified front wall of thorax, initial encounter; Z79.84 Long term (current) use of oral hypoglycemic drugs; E78.5 Hyperlipidemia, unspecified; I10 Essential (primary) hypertension; E11.9 Type 2 diabetes mellitus without complications; W01.0XXA Fall on same level from slipping, tripping and stumbling without subsequent striking against object, initial encounter
CPT/HCPCS: 71045; 71120; 72100; 73110; 73130; 99284

== ENCOUNTER → 2022-08-09 09:02 | Outpatient (BNVA) | payer MEDICARE, MEDICAID, SELFPAY | PROVIDERS: PCP Family Medicine; Visit Provider Internal Medicine | DX: R76.8 Other specified abnormal immunological findings in serum (principal); G47.30 Sleep apnea, unspecified; D64.9 Anemia, unspecified; M79.643 Pain in unspecified hand; M25.50 Pain in unspecified joint | CPT/HCPCS: 36415; 80053; 82728; 82784; 83516; 83540; 83735; 84100; 84425; 99214 ==

== ENCOUNTER 2022-11-10 10:01 | Outpatient (CLI) | payer MEDICARE, MEDICAID, SELFPAY | END 2022-11-10 10:02 | disposition home or self-care (01) | PROVIDERS: PCP Family Medicine; Visit Provider Internal Medicine | DX: E11.42 Type 2 diabetes mellitus with diabetic polyneuropathy (principal); M25.372 Other instability, left ankle; M76.821 Posterior tibial tendinitis, right leg; M76.61 Achilles tendinitis, right leg; M76.62 Achilles tendinitis, left leg; L60.3 Nail dystrophy; M25.371 Other instability, right ankle; R76.8 Other specified abnormal immunological findings in serum; M19.90 Unspecified osteoarthritis, unspecified site; Z79.899 Other long term (current) drug therapy | CPT/HCPCS: 36415; 80053; 85025; 85651; 86140; 99213 ==

== ENCOUNTER → 2022-11-14 11:16 | Outpatient (BNVA) | payer MEDICARE, MEDICAID, SELFPAY | PROVIDERS: PCP Family Medicine; Visit Provider Internal Medicine | DX: D64.9 Anemia, unspecified (principal); R76.8 Other specified abnormal immunological findings in serum; M25.50 Pain in unspecified joint; G47.30 Sleep apnea, unspecified; M79.643 Pain in unspecified hand | CPT/HCPCS: 99214 ==

== ENCOUNTER 2023-01-04 17:39 | Emergency (ER) | payer MEDICARE, MEDICAID, SELFPAY ==
[2023-01-04 17:46] VITALS: BP 194/88; PULSE 71; RESP 18; TEMP 36.4; O2SAT 98; BMI 47.4
--- NOTE | 2023-01-04 17:57 | ED_ITS ---
HPI - Abdominal Pain General: Chief Complaint: Abdominal Pain Stated Complaint: abd pain, lower back pain Time Seen by Provider: 01/04/23 17:57 History of Present Illness: 62-year-old female comes in today for complaints of abdominal pain and low back pain. Patient has a history of a bowel obstruction and this pain reminds her of her obstruction. Patient appears nontoxic. Patient appears in mild pain. Patient has very poor eye contact and responds simply to questions. Patient has a history of hypothyroidism, diabetes mellitus, GERD, chronic back pain, abdominal pain, mental health disorder. Associated Symptoms: Reports diarrhea; Denies chills, constipation, fever(s), nausea and vomiting Review of Systems General: Reports: 10 or more systems reviewed and unremarkable except in HPI and below Const: Denies: fever(s) or chills Card: Denies: chest pain Resp: Denies: dyspnea GI: Reports: diarrhea; Denies: nausea, vomiting or constipation : Denies: difficulty voiding Musc: Reports: back pain; Denies: neck pain Skin/Breast: Denies: rash Neuro: Denies: headache(s) PFSH ED PFSH: Medical History MUNDO positive Arthralgia Bipolar disorder Fatigue Fibromyalgia Homelessness unspecified Hyperlipidemia Hypertension Major depressive disorder, recurrent, in partial remission Psychiatric care Sleep apnea Type 2 diabetes mellitus with diabetic polyneuropathy Surgical History H/O tubal ligation Family History Family/Other Diabetes Other CAD (coronary artery disease) Cancer Hyperlipidemia Rheumatoid arthritis Denies family history of Lupus Clotting disorder Dementia Psychiatric illness Chronic kidney disease (CKD) Suicide Anesthesia complication Bleeding disorder Family history of premature coronary artery disease Lung disease Hypertension Stroke Social History Smoking and tobacco/nicotine status: never used tobacco/nicotine Alcohol intake: former Substance/Drug Use: never Current occupational status: disabled Physical Exam Const: COMMON NORMALS: alert HENMT: COMMON NORMALS: normocephalic HEAD & SCALP: normocephalic MOUTH: Normal oral and palatal mucosa present Neck/C-Spine: COMMON NORMALS: full ROM Resp: COMMON NORMALS: normal respiratory effort and clear to auscultation bilaterally AUSCULTATION: clear to auscultation bilaterally Cardio: COMMON NORMALS: regular rate and regular rhythm RATE: regular rate RHYTHM: regular rhythm GI: COMMON NORMALS: Soft to palpation PALPATION: Yes Soft to palpation, Yes Tenderness to palpation present (GI) (Generalized), No Guarding due to palpation present (GI) and No Rebound tenderness present : COMMON NORMALS: Yes no CVA tenderness BLADDER/KIDNEY EXAM: Yes no CVA tenderness Back/Pelvis: COMMON NORMALS: no CVA tenderness Extremity: COMMON NORMALS: full ROM Neuro: SENSORIUM/ORIENTATION: Yes alert Skin: COMMON NORMALS: turgor normal GENERAL SKIN EXAM: turgor normal Course Vital Signs: Vital signs: Vital Signs Temperature 97.5 F L 01/04/23 17:46 Pulse Rate 50 L 01/04/23 18:49 Respiratory Rate 18 01/04/23 17:46 Blood Pressure 194/88 01/04/23 17:46 Pulse Oximetry 97 01/04/23 18:49 Oxygen Delivery Me thod Room Air 01/04/23 17:46 MDM - Abdominal Pain Medical Decision Making 62-year-old female comes in today with complaints of lower abdominal pain radiating to the back. Patient has a history of bowel obstruction and abdominal surgery 1 year ago. Patient is concerned that she may have a bowel obstruction. On exam abdomen is soft with some generalized tenderness in the lower part of the abdomen. No CVA tenderness. Palpable paraspinous muscle tenderness of the back. Vital signs are normal. Patient does have some mild elevation of blood pressure though. Differential diagnosis includes but not limited to bowel obstruction, diverticulitis, gastroenteritis, dyspepsia. CBC and CMP were unremarkable. CT of the abdomen pelvis noted no obstruction or inflammatory processes. Further discussion with patient notes that she has changed her diet and added a protein drink daily to her regimen. I believe the changes in her bowel movements may be related to this protein diet change or she may has a viral syndrome. Recommended holding off on the protein drink until bowels get back to normal. We will give her some Lomotil as needed for abdominal cramping and diarrhea stools. Patient can then restart protein drinks with a half a drink a day and then increase as tolerated. Patient reported understanding of care plan and need for follow-up or return to the ER. Lab Data 01/04/23 18:12 01/04/23 18:12 Labs/Radiology: Radiology Impressions Abdomen/Pelvis CT 01/04/23 18:04 IMPRESSION: 1. No bowel obstruction or inflammatory process associated with the bowel. 2. No free air or significant free fluid in the abdomen or pelvis. 3. The appendix images normally. Laboratory Results WBC 8.48 10^3/uL (3.29-11.43) 01/04/23 18:12 RBC 4.54 10^6/uL (3.85-5.65) 01/04/23 18:12 Hgb 12.00 g/dL (11.27-16.99) 01/04/23 18:12 Hct 39.0 % (36-47) 01/04/23 18:12 MCV 85.9 fl (85-98) 01/04/23 18:12 MCH 26.4 pg (27-33) L 01/04/23 18:12 MCHC 30.8 g/dL (30-55) 01/04/23 18:12 RDW 14.1 % (12.1-15.1) 01/04/23 18:12 Plt Count 221 10^3/cmm (157-399) 01/04/23 18:12 MPV 10.4 fL (7.4-10.4) 01/04/23 18:12 Neut % (Auto) 51.3 % 01/04/23 18:12 Lymph % (Auto) 42.8 % 01/04/23 18:12 [place] % (Auto) 4.5 % 01/04/23 18:12 Eos % (Auto) 0.6 % 01/04/23 18:12 Baso % (Auto) 0.6 % 01/04/23 18:12 Neut # (Auto) 4.35 10^3/uL (1.8-7.7) 01/04/23 18:12 Lymph # (Auto) 3.6 10^3/uL (0.8-4.8) 01/04/23 18:12 [place] # (Auto) 0.4 10^3/uL (0.2-0.9) 01/04/23 18:12 Eos # (Auto) 0.1 10^3/uL (0.0-0.8) 01/04/23 18:12 Baso # (Auto) 0.1 10^3/uL (0.0-0.1) 01/04/23 18:12 Nucleated RBC % (auto) 0 % 01/04/23 18:12 Nucleated RBCs # 0.0 /100WBC 01/04/23 18:12 Sodium 138 mmol/L (136-145) 01/04/23 18:12 Potassium 3.9 mmol/L (3.5-5.1) 01/04/23 18:12 Chloride 104 mmol/L (98-107) 01/04/23 18:12 Carbon Dioxide 22 mmol/L (22-29) 01/04/23 18:12 Anion Gap 15.9 (5-19) 01/04/23 18:12 BUN 18 mg/dL (8-23) 01/04/23 18:12 Creatinine 0.7 mg/dL (0.5-0.9) 01/04/23 18:12 GFR Calculation 85.1 mL/min (90-130) L 01/04/23 18:12 Glucose 109 mg/dL (65-115) 01/04/23 18:12 Calculated Osmolality 288 mOsm/kg (285-295) 01/04/23 18:12 Calcium 9.6 mg/dL (8.5-10.5) 01/04/23 18:12 Total Bilirubin 0.2 mg/dL (0.15-1.2) 01/04/23 18:12 AST 24 U/L (0-32) 01/04/23 18:12 ALT 22 U/L (0-33) 01/04/23 18:12 Alkaline Phosphatase 123 U/L (35-105) H 01/04/23 18:12 Total Protein 8.3 g/dL (6.6-8.7) 01/04/23 18:12 Albumin 4.6 g/dL (3.5-5.2) 01/04/23 18:12 Globulin 3.7 g/dL (1.3-4.6) 01/04/23 18:12 Lipase 22 U/L (13-60) 01/04/23 18:12 Urine Color Yellow (Yellow) 01/04/23 18:12 Urine Appearance Sl hazy (CLEAR) A 01/04/23 18:12 Urine pH 5 (5-7) 01/04/23 18:12 Ur Specific [place] 1.010 (1.005-1.030) 01/04/23 18:12 Urine Protein Neg (Negative) 01/04/23 18:12 Urine Glucose (UA) Norm (Normal) 01/04/23 18:12 Urine Ketones Negative (Negative) 01/04/23 18:12 Urine Blood Neg (Negative) 01/04/23 18:12 Urine Nitrate Negative (Negative) 01/04/23 18:12 Urine Bilirubin Neg (Negative) 01/04/23 18:12 Urine Urobilinogen Norm mg/dL (Negative) 01/04/23 18:12 Ur Leukocyte Esterase 1+ (Negative) H 01/04/23 18:12 Urine RBC Rare /hpf (0-2) 01/04/23 18:12 Urine WBC 0-4 /hpf (0-5) H 01/04/23 18:12 Ur Squamous Epith Cells 5-10 /hpf (0-5) H 01/04/23 18:12 Ur Transition Epith Cell Rare /hpf 01/04/23 18:12 Amorphous Sediment Not Reportable 01/04/23 18:12 Urine Bacteria None /hpf (NONE) 01/04/23 18:12 Urine Mucus None /hpf 01/04/23 18:12 All radiology interpretation(s) finalized by discharge Discharge Plan Discharge Patient Disposition: Home Clinical Impression: Abdominal pain Qualifiers: Abdominal location: generalized Qualified Code(s): R10.84 - Generalized abdominal pain Diarrhea Qualifiers: Diarrhea type: unspecified type Qualified Code(s): R19.7 - Diarrhea, unspecified Condition: Stable Prescriptions: New diphenoxylate-atropine 2.5-0.025 mg tablet 1 tab PO Q8H PRN (Reason: diarrhea) Qty: 10 0RF No Action carbamazepine [Tegretol] 200 mg tablet 200 mg PO BID Qty: 60 2RF medroxyprogesterone 2.5 mg tablet 2.5 mg PO DAILY trazodone 50 mg tablet 25 mg PO DAILY tramadol 50 mg tablet 50 mg PO QID estradiol [Estrace] 1 mg tablet 1 mg PO DAILY levothyroxine 100 mcg capsule 100 mcg PO DAILY lisinopril 2.5 mg tablet 2.5 mg PO DAILY lovastatin 40 mg tablet 40 mg PO DAILY pregabalin [Lyrica] 100 mg capsule 100 mg PO BID omeprazole 40 mg capsule,delayed release(DR/EC) 40 mg PO DAILY pioglitazone [Actos] 45 mg tablet 45 mg PO DAILY azelastine 137 mcg (0.1 %) aerosol,spray 1 spray INTRANASAL DAILY [place] 0.7 % drops 1 drop ophthalmic (eye) DAILY dicyclomine 10 mg capsule 10 mg PO TID loratadine 10 mg capsule 10 mg PO DAILY fluticasone propionate 50 mcg/actuation spray,suspension 2 spray intranasal DAILY Rx Instructions: administer into each nostril zolpidem [Ambien CR] 6.25 mg tablet,ext release multiphase PO .Q HS (DME) Diabetic shoes with molded inserts See Rx Instructions .Route .MEDSUPPLY Qty: 1 0RF Rx Instructions: As directed [employer] diclofenac sodium [Voltaren Arthritis Pain] 1 % gel 4 g topical QID Qty: 100 1RF Rx Instructions: apply to single knee, ankle, foot; for foot includes sole/toes/top of foot hydroxychloroquine 200 mg tablet 300 mg PO DAILY Qty: 60 3RF cyanocobalamin (vitamin B-12) 50 mcg tablet 50 mcg PO DAILY Qty: 60 0RF mupirocin 2 % ointment 1 applic topical BID 14 Days Qty: 22 2RF (DME) AFO to right and left See Rx Instructions .Route .MEDSUPPLY Qty: 1 0RF Rx Instructions: As directed (DME) Diabetic Shoes with 3 sets of insoles See Rx Instructions .Route .MEDSUPPLY Qty: 1 0RF Rx Instructions: As directed fluoxetine [Prozac] 40 mg capsule 40 mg PO DAILY Qty: 30 2RF topiramate [Topamax] 25 mg tablet 50 mg PO DAILY Qty: 180 0RF magnesium oxide 400 mg magnesium capsule 400 mg PO DAILY Qty: 7 0RF ibuprofen 800 mg tablet 800 mg PO Q8H PRN (Reason: pain) Qty: 30 0RF Discharge Orders: Discharge ED (Routine); Ordered 01/04/23 Ordered By: Stephan Cuellar Referrals: Heriberto Thomson [Primary Care Provider] - Discharge Diet: Usual diet Discharge Activity: Increase activity as tolerated Patient Instructions: Abdominal Pain (ED) Activity Restrictions/Additional Instructions: Stop protein drink until bowels returned to normal. Then start back with half a bottle of protein drink a day and increase as tolerated. Use Lomotil tablet 1 tablet every 8 hours as needed for abdominal cramping and diarrhea. Follow-up with primary care for further instructions. Return to emergency department for worsening symptoms such as high fever greater than 100.4, blood in vomit or stool, or new concerns. 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
--- NOTE | 2023-01-04 18:04 | CTR_ITS ---
PROCEDURE INFORMATION: Exam: CT Abdomen And Pelvis Without Contrast Exam date and time: 01/04/2023 6:26 PM Age: 62 years old Clinical indication: Abdominal pain; Generalized; Prior surgery; Surgery date: <1 month; Surgery type: Bowel resection dec 14 2022; Additional info: Abd pain, low back pain, diarrhea stools, ckd TECHNIQUE: Imaging protocol: Computed tomography of the abdomen and pelvis without contrast. Radiation optimization: All CT scans at this facility use at least one of these dose optimization techniques: automated exposure control; mA and/or kV adjustment per patient size (includes targeted exams where dose is matched to clinical indication); or iterative reconstruction. REPORTING DATA: Count of CT and Cardiac NM exams in prior 12 months: This patient has received 2 known CTs and 0 known cardiac nuclear medicine studies in the 12 months prior to the current study. COMPARISON: CT abdomen pelvis w con* [id number] 04/11/2022 2:39 PM RADIATION DOSE METRICS: Total DLP (mGy-cm): 1253 FINDINGS: Liver: Normal. No mass. Gallbladder and bile ducts: Normal. No calcified stones. No ductal dilation. Pancreas: Normal. No ductal dilation. Spleen: Normal. No splenomegaly. Adrenal glands: Normal. No mass. Kidneys and ureters: Normal. No hydronephrosis. Stomach and bowel: Patent bowel anastomosis in the sigmoid colon. Appendix: No evidence of appendicitis. Intraperitoneal space: Unremarkable. No free air. No significant fluid collection. Vasculature: Unremarkable. No abdominal aortic aneurysm. Lymph nodes: Unremarkable. No enlarged lymph nodes. Urinary bladder: Unremarkable as visualized. Reproductive: Unremarkable as visualized. Bones/joints: Unremarkable. No acute fracture. Soft tissues: Postsurgical changes along the anterior pelvic wall. 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/CT abdomen pelvis wo con [id number] IMPRESSION: 1. No bowel obstruction or inflammatory process associated with the bowel. 2. No free air or significant free fluid in the abdomen or pelvis. 3. The appendix images normally.
[2023-01-04 18:19] LABS: Basophils # 0.1 10^3/uL (0.0-0.1); Basophils % 0.6 %; Eosinophils # 0.1 10^3/uL (0.0-0.8); Eosinophils % 0.6 %; Lymphocytes # 3.6 10^3/uL (0.8-4.8); Lymphocytes % 42.8 %; Mean Corpuscular HGB Conc 30.8 g/dL (30-55); Mean Corpuscular Hemoglobin 26.4 pg (27-33); Mean Corpuscular Volume 85.9 fl (85-98); Mean Platelet Volume 10.4 fL (7.4-10.4); Monocytes # 0.4 10^3/uL (0.2-0.9); Monocytes % 4.5 %; Neutrophils # 4.35 10^3/uL (1.8-7.7); Neutrophils % 51.3 %; Nucleated Red Blood Cells % 0 %; Platelet Count 221 10^3/cmm (157-399); Red Blood Count 4.54 10^6/uL (3.85-5.65); Red Cell Distribution Width 14.1 % (12.1-15.1); White Blood Count 8.48 10^3/uL (3.29-11.43)
[2023-01-04 18:33] LABS: Add Urine Microscopic? YES; Bilirubin Urine Neg (Negative); Blood Urine Neg (Negative); Glucose Urine UA Norm (Normal); Ketones Urine Negative (Negative); Leukocyte Esterase Urine 1+ (Negative); Nitrate Urine Negative (Negative); Protein Urine Neg (Negative); Urine Appearance SL Hazy (CLEAR); Urine Color Yellow (Yellow); Urobilinogen Urine Norm (Negative); pH Urine 5 (5-7)
[2023-01-04 18:37] LABS: Add Urine Culture? No; Alanine Aminotransferase 22 U/L (0-33); Albumin Level 4.6 g/dL (3.5-5.2); Alkaline Phosphatase 123 U/L (35-105); Anion Gap 15.9 (5-19); Aspartate Amino Transferase 24 U/L (0-32); Blood Urea Nitrogen 18 mg/dL (8-23); Calcium 9.6 mg/dL (8.5-10.5); Carbon Dioxide 22 mmol/L (22-29); Chloride 104 mmol/L (98-107); Globulin 3.7 g/dL (1.3-4.6); Glomerular Filtration Rate 85.1 mL/min (90-130); Glucose 109 mg/dL (65-115); Lipase 22 U/L (13-60); Osmolality Calculated 288 mOsm/kg (285-295); Potassium 3.9 mmol/L (3.5-5.1); RBC Urine RARE /hpf (0-2); Sodium 138 mmol/L (136-145); Total Bilirubin 0.2 mg/dL (0.15-1.2); Total Protein 8.3 g/dL (6.6-8.7); Transitional Epi Cells Urine RARE /hpf; WBC Urine 0-4 /hpf (0-5)
[2023-01-04 18:49] VITALS: PULSE 50; O2SAT 97
[2023-01-04] MEDS: diphenoxylate/atropine Tablet 2 TAB PO (19:21)
[2023-01-04 19:22] VITALS: PULSE 51; O2SAT 96
== END 2023-01-04 19:23 | disposition home or self-care (01) ==
PROVIDERS: Emergency Provider Nurse Practitioner Family; PCP Family Medicine
DX: R10.84 Generalized abdominal pain (principal); R19.7 Diarrhea, unspecified; E78.5 Hyperlipidemia, unspecified; I10 Essential (primary) hypertension; E11.42 Type 2 diabetes mellitus with diabetic polyneuropathy
CPT/HCPCS: 74176; 80053; 81001; 83690; 85025; 99284

== ENCOUNTER → 2023-02-20 12:51 | Outpatient (BNVA) | payer MEDICARE, MEDICAID, SELFPAY | PROVIDERS: PCP Family Medicine; Visit Provider Podiatrist Foot & Ankle Surgery | DX: E11.42 Type 2 diabetes mellitus with diabetic polyneuropathy (principal); M25.372 Other instability, left ankle; M76.61 Achilles tendinitis, right leg; M76.62 Achilles tendinitis, left leg; M25.371 Other instability, right ankle; M76.821 Posterior tibial tendinitis, right leg | CPT/HCPCS: 99213 ==

== ENCOUNTER → 2023-02-27 11:02 | Outpatient (BNVA) | payer MEDICARE, MEDICAID, SELFPAY | PROVIDERS: PCP Family Medicine; Visit Provider Internal Medicine | DX: R76.8 Other specified abnormal immunological findings in serum (principal); M25.50 Pain in unspecified joint; D64.9 Anemia, unspecified; G47.30 Sleep apnea, unspecified | CPT/HCPCS: 99214 ==

== ENCOUNTER 2023-03-10 13:48 | Emergency (ER) | payer MEDICARE, MEDICAID, SELFPAY ==
[2023-03-10 13:53] VITALS: BP 158/63; PULSE 50; RESP 16; TEMP 36.6; O2SAT 100
--- NOTE | 2023-03-10 14:09 | ED_ITS ---
Documented by User: PALLAVI Castañeda 03/10/23 14:23 HPI - Abdominal Pain 2 General: Chief Complaint: Abdominal Pain Stated Complaint: abd pain Time Seen by Provider: 03/10/23 13:50 Source: patient Mode of arrival: ambulatory Limitations: no limitations History of Present Illness: Patient is a 63-year-old female who presents to ED today with a complaint of lower abdominal pain over the past 2 days. Patient states she has a history of bowel obstruction as well as colitis. She has a history of a partial colon resection. Patient states her pain today reminds her of these. She is reporting soft pencillike stools. No bloody stools. She is not having any vomiting. Denies fevers but does have some chills. She denies urinary symptoms although reportedly has neuropathy down there and has never had felt any dysuria with previous UTIs. MD elicited complaint: abdominal pain Pertinent past history: other (bowel obstruction, partial colon resection) Onset (ago): day(s) Pain Consistency: constant Location: RLQ, LLQ and Suprapubic Severity: moderate Quality: stabbing, aching and sharp Radiation: none Migration to: no migration Exacerbating factors: nothing Relieving factors: nothing Associated Symptoms: Reports change in bowel habits (reporting soft pencil stools), chills and GI cramping; Denies diarrhea, dysuria, fever(s), heartburn, hematochezia, melena, nausea, syncope and vomiting Related Data: Patient : No Review of Systems 2 Const: Reports: chills; Denies: fever(s), body aches, fatigue or malaise Eyes: Denies: change in vision or blurry vision Card: Denies: chest pain, palpitations, irregular heart rhythm, lightheadedness, syncope or dyspnea on exertion Resp: Denies: dyspnea, productive cough or pain on inspiration GI: Reports: abdominal pain, GI cramping and change in bowel habits (reporting soft pencil stools); Denies: nausea, vomiting, heartburn, diarrhea, rectal pain, rectal swelling, hematochezia or melena : Denies: flank pain, difficulty voiding, dysuria, urinary frequency, urinary urgency or urinary hesitancy Musc: Denies: neck pain, back pain, extremity pain, extremity swelling or joint pain Skin/Breast: Denies: rash Neuro: Denies: headache(s), numbness in extremities, weakness in extremities or sensory changes PFSH ED 2 PFSH: Medical History Homelessness unspecified Sleep apnea Arthralgia Fatigue MUNDO positive Psychiatric care Major depressive disorder, recurrent, 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 Fibromyalgia Hypertension Hyperlipidemia Bipolar disorder Surgical History H/O tubal ligation Family History Family/Other Diabetes Other CAD (coronary artery disease) Cancer Hyperlipidemia Rheumatoid arthritis Denies family history of Lupus Clotting disorder Dementia Psychiatric illness Chronic kidney disease (CKD) Suicide Anesthesia complication Bleeding disorder Family history of premature coronary artery disease Lung disease Hypertension Stroke Social History Smoking and tobacco/nicotine status: never used tobacco/nicotine Alcohol intake: former Substance/Drug Use: never Current occupational status: disabled Physical Exam 2 Const: COMMON NORMALS: no acute distress, patient oriented x3, no limitations, alert and well nourished NUTRITIONAL APPEARANCE: obese morbidly obese (BMI over 50) HENMT: COMMON NORMALS: normocephalic and atraumatic HEAD & SCALP: n ormocephalic and atraumatic Neck/C-Spine: COMMON NORMALS: full ROM, no lymphadenopathy, supple and no meningeal signs Chest: COMMONS NORMALS: normal inspection of the chest Resp: COMMON NORMALS: normal respiratory effort and clear to auscultation bilaterally AUSCULTATION: clear to auscultation bilaterally Cardio: COMMON NORMALS: regular rate and regular rhythm RATE: regular rate RHYTHM: regular rhythm GI: COMMON NORMALS: Normal to inspection, nondistended, normoactive bowel sounds present, Soft to palpation, No hepatosplenomegaly present and no masses INSPECTION: Yes normal to inspection AUSCULTATION: Yes normoactive bowel sounds PALPATION: Yes Soft to palpation, Yes Tenderness to palpation present (GI) (throughout mid to lower abdomen) and Yes No hepatosplenomegaly present OTHER: exam limited secondary to morbid obesity/large pannus : COMMON NORMALS: Yes no CVA tenderness BLADDER/KIDNEY EXAM: Yes no CVA tenderness Back/Pelvis: COMMON NORMALS: no CVA tenderness and thoracic and lumbar spine normal to inspection Extremity: COMMON NORMALS: normal to inspection GENERAL: Yes normal exam except as noted Neuro: RACHAEL COMA SCALE: document GCS findings Rachael coma scale eye opening: Spontaneous Rachael coma scale verbal response: Orientated Mcdowell coma scale motor response: Obey commands Rachael coma scale total score: 15 COMMON NORMALS: patient oriented x3, moves all extremities, no focal motor deficits and no sensory deficits noted SENSORIUM/ORIENTATION: Yes alert MENINGEAL SIGNS: Yes no meningeal signs Skin: COMMON NORMALS: no rashes or lesions noted GENERAL SKIN EXAM: no rashes or lesions noted Course 2 Vital Signs: Vital signs: Vital Signs Temperature 97.9 F 03/10/23 18:56 Pulse Rate 80 03/10/23 18:56 Respiratory Rate 16 03/10/23 18:56 Blood Pressure 141/40 03/10/23 18:56 Pulse Oximetry 95 03/10/23 18:56 Oxygen Delivery Me thod Room Air 03/10/23 15:22 MDM - Abdominal Pain Lab Data 03/10/23 14:32 03/10/23 14:32 Labs/Radiology: Laboratory Results WBC 6.44 10^3/uL (3.29-11.43) 03/10/23 14:32 RBC 3.77 10^6/uL (3.85-5.65) L 03/10/23 14:32 Hgb 10.20 g/dL (11.27-16.99) L 03/10/23 14:32 Hct 32.9 % (36-47) L 03/10/23 14:32 MCV 87.3 fl (85-98) 03/10/23 14:32 MCH 27.1 pg (27-33) 03/10/23 14:32 MCHC 31.0 g/dL (30-55) 03/10/23 14:32 RDW 14.3 % (12.1-15.1) 03/10/23 14:32 Plt Count 148 10^3/cmm (157-399) L 03/10/23 14:32 MPV 11.2 fL (7.4-10.4) H 03/10/23 14:32 Neut % (Auto) 53.7 % 03/10/23 14:32 Lymph % (Auto) 39.0 % 03/10/23 14:32 [place] % (Auto) 5.3 % 03/10/23 14:32 Eos % (Auto) 0.9 % 03/10/23 14:32 Baso % (Auto) 0.8 % 03/10/23 14:32 Neut # (Auto) 3.46 10^3/uL (1.8-7.7) 03/10/23 14:32 Lymph # (Auto) 2.5 10^3/uL (0.8-4.8) 03/10/23 14:32 [place] # (Auto) 0.3 10^3/uL (0.2-0.9) 03/10/23 14:32 Eos # (Auto) 0.1 10^3/uL (0.0-0.8) 03/10/23 14:32 Baso # (Auto) 0.1 10^3/uL (0.0-0.1) 03/10/23 14:32 Nucleated RBC % (auto) 0 % 03/10/23 14:32 Nucleated RBCs # 0.0 /100WBC 03/10/23 14:32 Sodium 135 mmol/L (136-145) L 03/10/23 14:32 Potassium 3.8 mmol/L (3.5-5.1) 03/10/23 14:32 Chloride 103 mmol/L (98-107) 03/10/23 14:32 Carbon Dioxide 22 mmol/L (22-29) 03/10/23 14:32 Anion Gap 13.8 (5-19) 03/10/23 14:32 BUN 16 mg/dL (8-23) 03/10/23 14:32 Creatinine 0.6 mg/dL (0.5-0.9) 03/10/23 14:32 GFR Calculation 101.3 mL/min (90-130) 03/10/23 14:32 Glucose 84 mg/dL (65-115) 03/10/23 14:32 Calculated Osmolality 280 mOsm/kg (285-295) L 03/10/23 14:32 Calcium 8.7 mg/dL (8.5-10.5) 03/10/23 14:32 Total Bilirubin 0.2 mg/dL (0.15-1.2) 03/10/23 14:32 AST 21 U/L (0-32) 03/10/23 14:32 ALT 17 U/L (0-33) 03/10/23 14:32 Alkaline Phosphatase 100 U/L (35-105) 03/10/23 14:32 Total Protein 7.0 g/dL (6.6-8.7) 03/10/23 14:32 Albumin 3.9 g/dL (3.5-5.2) 03/10/23 14:32 Globulin 3.1 g/dL (1.3-4.6) 03/10/23 14:32 Lipase 16 U/L (13-60) 03/10/23 14:32 Urine Color Yellow (Yellow) 03/10/23 17:24 Urine Appearance Clear (CLEAR) 03/10/23 17:24 Urine pH 5 (5-7) 03/10/23 17:24 Ur Specific [place] 1.005 (1.005-1.030) 03/10/23 17:24 Urine Protein Neg (Negative) 03/10/23 17:24 Urine Glucose (UA) Norm (Normal) 03/10/23 17:24 Urine Ketones Negative (Negative) 03/10/23 17:24 Urine Blood Neg (Negative) 03/10/23 17:24 Urine Nitrate Negative (Negative) 03/10/23 17:24 Urine Bilirubin Neg (Negative) 03/10/23 17:24 Urine Urobilinogen Norm mg/dL (Negative) 03/10/23 17:24 Ur Leukocyte Esterase Negative (Negative) 03/10/23 17:24 Discharge Plan Discharge Patient Disposition: Home Clinical Impression: Abdominal pain Qualifiers: Abdominal location: lower abdomen, unspecified Qualified Code(s): R10.30 - Lower abdominal pain, unspecified Condition: Stable Prescriptions: No Action carbamazepine [Tegretol] 200 mg tablet 200 mg PO BID Qty: 60 2RF medroxyprogesterone 2.5 mg tablet 2.5 mg PO DAILY trazodone 50 mg tablet 25 mg PO DAILY tramadol 50 mg tablet 50 mg PO QID estradiol [Estrace] 1 mg tablet 1 mg PO DAILY levothyroxine 100 mcg capsule 100 mcg PO DAILY lisinopril 2.5 mg tablet 2.5 mg PO DAILY lovastatin 40 mg tablet 40 mg PO DAILY pregabalin [Lyrica] 100 mg capsule 100 mg PO BID omeprazole 40 mg capsule,delayed release(DR/EC) 40 mg PO DAILY pioglitazone [Actos] 45 mg tablet 45 mg PO DAILY azelastine 137 mcg (0.1 %) aerosol,spray 1 spray INTRANASAL DAILY dicyclomine 10 mg capsule 10 mg PO TID loratadine 10 mg capsule 10 mg PO DAILY fluticasone propionate 50 mcg/actuation spray,suspension 2 spray intranasal DAILY Rx Instructions: administer into each nostril zolpidem [Ambien CR] 6.25 mg tablet,ext release multiphase PO .Q HS (DME) Diabetic shoes with molded inserts See Rx Instructions .Route .MEDSUPPLY Qty: 1 0RF Rx Instructions: As directed J P & O topiramate [Topamax] 25 mg tablet 50 mg PO DAILY Qty: 180 0RF fluoxetine [Prozac] 40 mg capsule 40 mg PO DAILY Qty: 90 0RF diclofenac sodium [Voltaren Arthritis Pain] 1 % gel 4 g topical QID Qty: 100 1RF Rx Instructions: apply to single knee, ankle, foot; for foot includes sole/toes/top of foot hydroxychloroquine 200 mg tablet 300 mg PO DAILY Qty: 60 3RF cyanocobalamin (vitamin B-12) 50 mcg tablet 50 mcg PO DAILY Qty: 60 0RF mupirocin 2 % ointment 1 applic topical BID 14 Days Qty: 22 2RF (DME) AFO to right and left See Rx Instructions .Route .MEDSUPPLY Qty: 1 0RF Rx Instructions: As directed (DME) Diabetic Shoes with 3 sets of insoles See Rx Instructions .Route .MEDSUPPLY Qty: 1 0RF Rx Instructions: As directed magnesium oxide 400 mg magnesium capsule 400 mg PO DAILY Qty: 7 0RF ibuprofen 800 mg tablet 800 mg PO Q8H PRN (Reason: pain) Qty: 30 0RF diphenoxylate-atropine 2.5-0.025 mg tablet 1 tab PO Q8H PRN (Reason: diarrhea) Qty: 10 0RF Discharge Orders: Discharge ED (Routine); Ordered 03/10/23 Ordered By: Gertrude Shore Referrals: Heriberto Thomson [Primary Care Provider] - Discharge Diet: Usual diet Discharge Activity: Increase activity as tolerated Patient Instructions: Abdominal Pain (ED) Activity Restrictions/Additional Instructions: Lab work today shows no acute concerns. Your urinalysis is clear of any concerns of a urinary infection. CT examination shows no signs of any bowel occlusion but did report 2 areas of small lipomatous areas of the colon. These do not obstruct your colon but, as this seems to be a new finding, would recommend you notify your primary care doctor as it may be important that you get back in with your GI/general surgeon specialist to discuss whether or not another colonoscopy or further imaging would be appropriate to continue to monitor. Watch for any blood per rectum, new onset fever with acute worsening of abdominal pains. If this occurs he should return to the emergency department. Sign Out Sign Out Data: Patient Sign Out occurred on 03/10/23 at 17:23. Patient's care was discussed, and care was transferred from PALLAVI Castañeda to PALLAVI Rizo. 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 Fibromyalgia Hypertension Hyperlipidemia Bipolar disorder Surgical History H/O tubal ligation Family History Family/Other Diabetes Other CAD (coronary artery disease) Cancer Hyperlipidemia Rheumatoid arthritis Denies family history of Lupus Clotting disorder Dementia Psychiatric illness Chronic kidney disease (CKD) Suicide Anesthesia complication Bleeding disorder Family history of premature coronary artery disease Lung disease Hypertension Stroke Social History Smoking and tobacco/nicotine status: never used tobacco/nicotine Alcohol intake: former Substance/Drug Use: never Current occupational status: disabled Physical Exam 2 Neuro: RACHAEL COMA SCALE: document GCS findings Rachael coma scale total score: 15 Course 2 Vital Signs: Vital signs: Vital Signs Temperature 97.9 F 03/10/23 18:56 Pulse Rate 80 03/10/23 18:56 Respiratory Rate 16 03/10/23 18:56 Blood Pressure 141/40 03/10/23 18:56 Pulse Oximetry 95 03/10/23 18:56 Oxygen Delivery Me thod Room Air 03/10/23 15:22 MDM - Abdominal Pain Medical Decision Making Gertrude Shore PA-C: Transfer of care from Crystal Orozco PA-C at 1700. Crystal discussed me the patient's past medical history and presenting symptoms today. She explained that the patient's lab work is stable and imaging only revealed 2 areas of small lipomatous findings in the colon lumen. There were several delays on the patient's urinalysis which she indicated was the only test result we are still waiting for to determine if any antibiotic treatment today was necessary. Patient's urinalysis did eventually post which showed no acute findings. I went to go speak with the patient regarding the findings of her CT scan, lab work, and urinalysis. After discussing the findings of the lipomatous areas in her colon lumen, she indicated she was unaware of these. Patient reports her general surgeon is through [facility] in [place]-Dr. Aguirre. She states her last colonoscopy was sometime last summer. 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 I encouraged her to notify her doctor and Dr. Aguirre regarding these findings as they may wish to repeat her colonoscopy. However, I assured her that these are nonocclusive of her colon/bowel today. We discussed having her records from today sent over to her [facility] primary care doctor to be added to her medical records at [facility]. Also encouraged a follow-up then for continued monitoring. However, strict return precautions for the emergency department given including blood per rectum, worsening abdominal pains, vomiting, fevers. Patient verbalizes her understanding and agreement to treatment plan. Differential Diagnosis Likely abdominal pain; Unlikely acute appendicitis, calculus of kidney, constipation, diverticulitis, gastroenteritis, pancreatitis or small bowel obstruction Lab Data 03/10/23 14:32 03/10/23 14:32 Labs/Radiology: Laboratory Results WBC 6.44 10^3/uL (3.29-11.43) 03/10/23 14:32 RBC 3.77 10^6/uL (3.85-5.65) L 03/10/23 14:32 Hgb 10.20 g/dL (11.27-16.99) L 03/10/23 14:32 Hct 32.9 % (36-47) L 03/10/23 14:32 MCV 87.3 fl (85-98) 03/10/23 14:32 MCH 27.1 pg (27-33) 03/10/23 14:32 MCHC 31.0 g/dL (30-55) 03/10/23 14:32 RDW 14.3 % (12.1-15.1) 03/10/23 14:32 Plt Count 148 10^3/cmm (157-399) L 03/10/23 14:32 MPV 11.2 fL (7.4-10.4) H 03/10/23 14:32 Neut % (Auto) 53.7 % 03/10/23 14:32 Lymph % (Auto) 39.0 % 03/10/23 14:32 [place] % (Auto) 5.3 % 03/10/23 14:32 Eos % (Auto) 0.9 % 03/10/23 14:32 Baso % (Auto) 0.8 % 03/10/23 14:32 Neut # (Auto) 3.46 10^3/uL (1.8-7.7) 03/10/23 14:32 Lymph # (Auto) 2.5 10^3/uL (0.8-4.8) 03/10/23 14:32 [place] # (Auto) 0.3 10^3/uL (0.2-0.9) 03/10/23 14:32 Eos # (Auto) 0.1 10^3/uL (0.0-0.8) 03/10/23 14:32 Baso # (Auto) 0.1 10^3/uL (0.0-0.1) 03/10/23 14:32 Nucleated RBC % (auto) 0 % 03/10/23 14:32 Nucleated RBCs # 0.0 /100WBC 03/10/23 14:32 Sodium 135 mmol/L (136-145) L 03/10/23 14:32 Potassium 3.8 mmol/L (3.5-5.1) 03/10/23 14:32 Chloride 103 mmol/L (98-107) 03/10/23 14:32 Carbon Dioxide 22 mmol/L (22-29) 03/10/23 14:32 Anion Gap 13.8 (5-19) 03/10/23 14:32 BUN 16 mg/dL (8-23) 03/10/23 14:32 Creatinine 0.6 mg/dL (0.5-0.9) 03/10/23 14:32 GFR Calculation 101.3 mL/min (90-130) 03/10/23 14:32 Glucose 84 mg/dL (65-115) 03/10/23 14:32 Calculated Osmolality 280 mOsm/kg (285-295) L 03/10/23 14:32 Calcium 8.7 mg/dL (8.5-10.5) 03/10/23 14:32 Total Bilirubin 0.2 mg/dL (0.15-1.2) 03/10/23 14:32 AST 21 U/L (0-32) 03/10/23 14:32 ALT 17 U/L (0-33) 03/10/23 14:32 Alkaline Phosphatase 100 U/L (35-105) 03/10/23 14:32 Total Protein 7.0 g/dL (6.6-8.7) 03/10/23 14:32 Albumin 3.9 g/dL (3.5-5.2) 03/10/23 14:32 Globulin 3.1 g/dL (1.3-4.6) 03/10/23 14:32 Lipase 16 U/L (13-60) 03/10/23 14:32 Urine Color Yellow (Yellow) 03/10/23 17:24 Urine Appearance Clear (CLEAR) 03/10/23 17:24 Urine pH 5 (5-7) 03/10/23 17:24 Ur Specific [place] 1.005 (1.005-1.030) 03/10/23 17:24 Urine Protein Neg (Negative) 03/10/23 17:24 Urine Glucose (UA) Norm (Normal) 03/10/23 17:24 Urine Ketones Negative (Negative) 03/10/23 17:24 Urine Blood Neg (Negative) 03/10/23 17:24 Urine Nitrate Negative (Negative) 03/10/23 17:24 Urine Bilirubin Neg (Negative) 03/10/23 17:24 Urine Urobilinogen Norm mg/dL (Negative) 03/10/23 17:24 Ur Leukocyte Esterase Negative (Negative) 03/10/23 17:24 All radiology interpretation(s) finalized by discharge Discharge Plan Discharge Patient Disposition: Home Clinical Impression: Abdominal pain Qualifiers: Abdominal location: lower abdomen, unspecified Qualified Code(s): R10.30 - Lower abdominal pain, unspecified Condition: Stable Prescriptions: No Action carbamazepine [Tegretol] 200 mg tablet 200 mg PO BID Qty: 60 2RF medroxyprogesterone 2.5 mg tablet 2.5 mg PO DAILY trazodone 50 mg tablet 25 mg PO DAILY tramadol 50 mg tablet 50 mg PO QID estradiol [Estrace] 1 mg tablet 1 mg PO DAILY levothyroxine 100 mcg capsule 100 mcg PO DAILY lisinopril 2.5 mg tablet 2.5 mg PO DAILY lovastatin 40 mg tablet 40 mg PO DAILY pregabalin [Lyrica] 100 mg capsule 100 mg PO BID omeprazole 40 mg capsule,delayed release(DR/EC) 40 mg PO DAILY pioglitazone [Actos] 45 mg tablet 45 mg PO DAILY azelastine 137 mcg (0.1 %) aerosol,spray 1 spray INTRANASAL DAILY dicyclomine 10 mg capsule 10 mg PO TID loratadine 10 mg capsule 10 mg PO DAILY fluticasone propionate 50 mcg/actuation spray,suspension 2 spray intranasal DAILY Rx Instructions: administer into each nostril zolpidem [Ambien CR] 6.25 mg tablet,ext release multiphase PO .Q HS (DME) Diabetic shoes with molded inserts See Rx Instructions .Route .MEDSUPPLY Qty: 1 0RF Rx Instructions: As directed J P & O topiramate [Topamax] 25 mg tablet 50 mg PO DAILY Qty: 180 0RF fluoxetine [Prozac] 40 mg capsule 40 mg PO DAILY Qty: 90 0RF diclofenac sodium [Voltaren Arthritis Pain] 1 % gel 4 g topical QID Qty: 100 1RF Rx Instructions: apply to single knee, ankle, foot; for foot includes sole/toes/top of foot hydroxychloroquine 200 mg tablet 300 mg PO DAILY Qty: 60 3RF cyanocobalamin (vitamin B-12) 50 mcg tablet 50 mcg PO DAILY Qty: 60 0RF mupirocin 2 % ointment 1 applic topical BID 14 Days Qty: 22 2RF (DME) AFO to right and left See Rx Instructions .Route .MEDSUPPLY Qty: 1 0RF Rx Instructions: As directed (DME) Diabetic Shoes with 3 sets of insoles See Rx Instructions .Route .MEDSUPPLY Qty: 1 0RF Rx Instructions: As directed magnesium oxide 400 mg magnesium capsule 400 mg PO DAILY Qty: 7 0RF ibuprofen 800 mg tablet 800 mg PO Q8H PRN (Reason: pain) Qty: 30 0RF diphenoxylate-atropine 2.5-0.025 mg tablet 1 tab PO Q8H PRN (Reason: diarrhea) Qty: 10 0RF Discharge Orders: Discharge ED (Routine); Ordered 03/10/23 Ordered By: Gertrude Shore Referrals: Heriberto Thomson [Primary Care Provider] - Discharge Diet: Usual diet Discharge Activity: Increase activity as tolerated Patient Instructions: Abdominal Pain (ED) Activity Restrictions/Additional Instructions: Lab work today shows no acute concerns. Your urinalysis is clear of any concerns of a urinary infection. CT examination shows no signs of any bowel occlusion but did report 2 areas of small lipomatous areas of the colon. These do not obstruct your colon but, as this seems to be a new finding, would recommend you notify your primary care doctor as it may be important that you get back in with your GI/general surgeon specialist to discuss whether or not another colonoscopy or further imaging would be appropriate to continue to monitor. Watch for any blood per rectum, new onset fever with acute worsening of abdominal pains. If this occurs he should return to the emergency department. Sign Out Sign Out Data: Patient Sign Out occurred on 03/10/23 at 17:23. Patient's care was discussed, and care was transferred from PALLAVI Castañeda to PALLAVI Rizo. Coding Level of Care Code ED Truer Pinion And Wheel for [place]
--- NOTE | 2023-03-10 14:09 | CT_ITS ---
WS: [id number] CT ABDOMEN PELVIS TECHNIQUE: Contrast-enhanced CT of the abdomen and pelvis with coronal and sagittal reformatted image s. CLINICAL INFORMATION: lower abdominal pain, reporting pencil stools COMPARISON: CT 01/04/2023 DLP: 1281.[address] scans at [place] use at least one of these dose optimization techniques: automated e xposure control; mA and/or kV adjustment per patient size (includes targeted exams where dose is matc hed to clinical indication); or iterative reconstruction. FINDINGS: Evidence of prior sigmoid resection with anastomosis. Sigmoid colon appears decompressed. Tortuous si gmoid colon. No evidence of acute diverticulitis. Mild constipation transverse colon. Fat attenuation polypoid lesion within the RIGHT colon at the splenic flexure measuring 2.9 x 2.9 cm. Recommend furt her evaluation with colonoscopy. No evidence of high-grade obstruction. Suggestion of an additional s maller intraluminal lipomatous lesion in the cecum measuring 2.5 x 1.3 cm. Stable RIGHT adrenal myelolipoma. Mild diffuse fatty infiltration of the liver. Hepatomegaly. Normal portal vein and splenic vein. Splenomegaly. Cardiomegaly. Small esophageal hiatal hernia. LEFT adrena l gland is normal. Normal renal parenchymal enhancement. No hydronephrosis. Normal caliber abdominal aorta. Celiac and SMA appear patent. Mild aortic calcification. IMPRESSION: 1. Evidence of prior sigmoid resection with anastomosis. Sigmoid colon appears decompressed. 2. Mild transverse colon and hepatic flexure constipation. 3. Intraluminal lipomatous polypoid lesion within the hepatic flexure measuring 2.9 x 2.9 cm. Recomm end further evaluation with colonoscopy. Suggestion of an additional smaller intraluminal lipomatous lesion in the cecum measuring 2.5 x 1.3 cm. No evidence of high-grade obstruction. 4. Small esophageal hiatal hernia. 5. Stable RIGHT adrenal myelolipoma. No evidence of hemorrhage. 6. No other acute findings.
[2023-03-10 14:37] VITALS: BP 172/92; PULSE 72; RESP 16; O2SAT 98
[2023-03-10 14:58] LABS: Basophils # 0.1 10^3/uL (0.0-0.1); Basophils % 0.8 %; Eosinophils # 0.1 10^3/uL (0.0-0.8); Eosinophils % 0.9 %; Hematocrit 32.9 % (36-47); Lymphocytes # 2.5 10^3/uL (0.8-4.8); Mean Corpuscular Hemoglobin 27.1 pg (27-33); Mean Corpuscular Volume 87.3 fl (85-98); Mean Platelet Volume 11.2 fL (7.4-10.4); Monocytes # 0.3 10^3/uL (0.2-0.9); Monocytes % 5.3 %; Neutrophils # 3.46 10^3/uL (1.8-7.7); Neutrophils % 53.7 %; Nucleated Red Blood Cells % 0 %; Platelet Count 148 10^3/cmm (157-399); Red Blood Count 3.77 10^6/uL (3.85-5.65); Red Cell Distribution Width 14.3 % (12.1-15.1); White Blood Count 6.44 10^3/uL (3.29-11.43)
[2023-03-10 15:18] LABS: Alanine Aminotransferase 17 U/L (0-33); Albumin Level 3.9 g/dL (3.5-5.2); Alkaline Phosphatase 100 U/L (35-105); Anion Gap 13.8 (5-19); Aspartate Amino Transferase 21 U/L (0-32); Blood Urea Nitrogen 16 mg/dL (8-23); Calcium 8.7 mg/dL (8.5-10.5); Carbon Dioxide 22 mmol/L (22-29); Chloride 103 mmol/L (98-107); Globulin 3.1 g/dL (1.3-4.6); Glomerular Filtration Rate 101.3 mL/min (90-130); Glucose 84 mg/dL (65-115); Lipase 16 U/L (13-60); Osmolality Calculated 280 mOsm/kg (285-295); Potassium 3.8 mmol/L (3.5-5.1); Sodium 135 mmol/L (136-145); Total Bilirubin 0.2 mg/dL (0.15-1.2)
[2023-03-10 15:22] VITALS: BP 141/40; PULSE 80; RESP 16; O2SAT 95
[2023-03-10] MEDS: iohexol 350 mg/mL 500 mL Btl (per mL) IV (16:01)
[2023-03-10 17:54] LABS: Add Urine Microscopic? NO; Charge for UA Resulting for Rev
[2023-03-10 18:01] LABS: Bilirubin Urine Neg (Negative); Blood Urine Neg (Negative); Glucose Urine UA Norm (Normal); Ketones Urine Negative (Negative); Leukocyte Esterase Urine Negative (Negative); Nitrate Urine Negative (Negative); Protein Urine Neg (Negative); Specific Gravity, Urine 1.005 (1.005-1.030); Urine Appearance Clear (CLEAR); Urine Color Yellow (Yellow); Urobilinogen Urine Norm (Negative); pH Urine 5 (5-7)
[2023-03-10 18:56] VITALS: BP 141/40; PULSE 80; RESP 16; TEMP 36.6; O2SAT 95
== END 2023-03-10 18:57 | disposition home or self-care (01) ==
PROVIDERS: Physician Assistant; Emergency Provider Physician Assistant; PCP Family Medicine
DX: R10.30 Lower abdominal pain, unspecified (principal); E11.42 Type 2 diabetes mellitus with diabetic polyneuropathy; I10 Essential (primary) hypertension; E78.5 Hyperlipidemia, unspecified
CPT/HCPCS: 36415; 74177; 80053; 81003; 83690; 85025; 99285; Q9967

== ENCOUNTER → 2023-05-24 12:48 | Outpatient (BNVA) | payer MEDICARE, MEDICAID, SELFPAY | PROVIDERS: PCP Family Medicine; Visit Provider Podiatrist Foot & Ankle Surgery | DX: E11.42 Type 2 diabetes mellitus with diabetic polyneuropathy (principal); M25.372 Other instability, left ankle; M25.371 Other instability, right ankle; L60.3 Nail dystrophy | CPT/HCPCS: 11721 ==

== ENCOUNTER → 2023-08-29 10:02 | Outpatient (BNVA) | payer MEDICARE, MEDICAID, OTHER, SELFPAY | PROVIDERS: PCP Family Medicine; Visit Provider Podiatrist Foot & Ankle Surgery | DX: E11.42 Type 2 diabetes mellitus with diabetic polyneuropathy (principal); L60.3 Nail dystrophy | CPT/HCPCS: 11721 ==

== ENCOUNTER → 2023-12-05 10:14 | Outpatient (BNVA) | payer MEDICARE, MEDICAID, SELFPAY | PROVIDERS: PCP Family Medicine; Visit Provider Podiatrist Foot & Ankle Surgery | DX: E11.42 Type 2 diabetes mellitus with diabetic polyneuropathy (principal); R60.0 Localized edema; L97.521 Non-pressure chronic ulcer of other part of left foot limited to breakdown of skin; E11.621 Type 2 diabetes mellitus with foot ulcer | CPT/HCPCS: 99213 ==

== ENCOUNTER → 2023-12-21 13:58 | Outpatient (BNVA) | payer MEDICARE, MEDICAID, SELFPAY | PROVIDERS: PCP Family Medicine; Visit Provider Podiatrist Foot & Ankle Surgery | DX: L97.521 Non-pressure chronic ulcer of other part of left foot limited to breakdown of skin (principal); E11.621 Type 2 diabetes mellitus with foot ulcer; E11.42 Type 2 diabetes mellitus with diabetic polyneuropathy; R60.0 Localized edema; S93.602A Unspecified sprain of left foot, initial encounter; X58.XXXA Exposure to other specified factors, initial encounter | CPT/HCPCS: 73630; 99213 ==

== ENCOUNTER → 2024-02-13 10:57 | Outpatient (BNVA) | payer MEDICARE, MEDICAID, SELFPAY | PROVIDERS: PCP Family Medicine; Visit Provider Podiatrist Foot & Ankle Surgery | DX: S93.402A Sprain of unspecified ligament of left ankle, initial encounter; X58.XXXA Exposure to other specified factors, initial encounter; E11.42 Type 2 diabetes mellitus with diabetic polyneuropathy | CPT/HCPCS: 73610; 73630; 99213 ==

== ENCOUNTER 2024-06-16 15:43 | Emergency (ER) | payer OTHER, MEDICAID, SELFPAY ==
[2024-06-16] VITALS (7 sets, daily range): BP systolic 160–192; BP diastolic 62–70; PULSE 50–64; RESP 15–18; TEMP 36.7; O2SAT 93–99; BMI 52.4
--- NOTE | 2024-06-16 16:43 | XRR_ITS ---
PROCEDURE INFORMATION: Exam: XR Right Forearm Exam date and time: 06/16/2024 5:20 PM Age: 64 years old Clinical indication: Lower or forearm; Right; RT arm pain post fall; Best obtainable images due to PT condition TECHNIQUE: Imaging protocol: Radiologic exam of the right forearm. Views: 2 views. COMPARISON: No relevant prior studies available. FINDINGS: Bones/joints: Nondisplaced radial head fracture with intra-articular extension. No dislocation. The wrist appears grossly intact. Likely small elbow joint effusion. Soft tissues: Normal. XR/XR forearm RT 2V [id number] IMPRESSION: Nondisplaced radial head fracture.
--- NOTE | 2024-06-16 16:43 | XRR_ITS ---
PROCEDURE INFORMATION: Exam: XR Right Humerus Exam date and time: 06/16/2024 5:20 PM Age: 64 years old Clinical indication: Upper arm; Right; RT arm pain post fall; Best obtainable images due to PT condition TECHNIQUE: Imaging protocol: Radiologic exam of the right humerus. Views: 2 or more views. COMPARISON: No relevant prior studies available. FINDINGS: Bones/joints: No acute fracture involving the humerus. Nondisplaced radial head fracture noted. Moderate degenerative changes of the acromioclavicular joint. Soft tissues: Normal. XR/[place] [id number] IMPRESSION: 1. No acute fracture involving the humerus. 2. Nondisplaced radial head fracture.
[2024-06-16] MEDS: ondansetron 2 mg/ML SDV 2 mL 4 MG IVP (17:24)
[2024-06-16] MEDS: morphine 4 mg/mL SDV 1 mL IVP (17:25)
--- NOTE | 2024-06-16 18:24 | W.ED.FALL ---
HPI - Fall General: Chief Complaint: Fall Stated Complaint: fell, pain in rt arm & face Time Seen by Provider: 06/16/24 17:12 History of Present Illness: 64-year-old female presents following a fall. She was out mowing when she tripped on a root and fell. She has a small abrasion on her nose. Mild headache. She is not on blood thinners. Patient is complaining of a lot of pain in her right elbow and forearm with difficulty moving it. Fall happened just prior to arrival. Associated symptoms-after fall: Denies abdominal pain or chest pain Related Data Home Medications ?Medication ?Instructions ?Recorded ?Confirmed azelastine 137 mcg (0.1 %) nasal 1 spray intranasal DAILY 04/16/19 06/16/24 spray estradiol 1 mg tablet (Estrace) 1 mg PO DAILY 04/16/19 06/16/24 lisinopril 2.5 mg tablet 2.5 mg PO DAILY 04/16/19 06/16/24 lovastatin 40 mg tablet 40 mg PO DAILY 04/16/19 06/16/24 omeprazole 40 mg capsule,delayed 40 mg PO DAILY 04/16/19 06/16/24 release pioglitazone 45 mg tablet (Actos) 45 mg PO DAILY 04/16/19 06/16/24 pregabalin 100 mg capsule (Lyrica) 100 mg PO BID 04/16/19 06/16/24 tramadol 50 mg tablet 50 mg PO QID 04/16/19 06/16/24 fluticasone propionate 50 2 spray intranasal DAILY 06/04/20 06/16/24 mcg/actuation nasal spray,suspension medroxyprogesterone 2.5 mg tablet 2.5 mg PO DAILY 08/27/20 06/16/24 zolpidem 6.25 mg tablet,extended 6.25 mg PO QPM 08/23/21 06/16/24 release,multiphase (Ambien CR) trazodone 50 mg tablet 25 mg PO DAILY 03/01/22 06/16/24 levothyroxine 100 mcg tablet 100 mcg PO DAILY 06/16/24 06/16/24 sennosides 8.6 mg-docusate sodium 1 tab PO BID 06/16/24 06/16/24 50 mg tablet (Stool Softener-Laxative) Previous Rx's ?Medication ?Instructions ?Recorded hydroxychloroquine 200 mg tablet 300 mg (1.5 x 200 mg) PO DAILY #60 11/14/22 tabs carbamazepine 200 mg tablet 200 mg PO BID #60 tabs 05/24/24 (Tegretol) topiramate 25 mg tablet (Topamax) 50 mg (2 x 25 mg) PO DAILY #180 06/03/24 tabs fluoxetine 40 mg capsule (Prozac) 40 mg PO DAILY #90 caps 06/10/24 tramadol 50 mg tablet 50 mg PO BID PRN pain #10 tabs 06/16/24 Allergies Allergy/AdvReac Type Severity Reaction Status Date / Time acetaminophen (From Vicodin) Allergy ADR-Nightma Verified 06/03/24 12:02 re bee venom protein (honey bee) Allergy ALGY-Rash Verified 06/03/24 12:02 gabapentin Allergy ADR-Nightma Verified 06/03/24 12:02 re hydrocodone (From Vicodin) Allergy ADR-Nightma Verified 06/03/24 12:02 re levalbuterol (From Xopenex) Allergy Unconscious Verified 06/03/24 12:02 metronidazole (From Flagyl) Allergy Unknown Verified 06/03/24 12:02 poison elif extract Allergy algy-rash Verified 06/03/24 12:02 Review of Systems Const: Denies: fever(s) or chills Card: Denies: chest pain or palpitations Resp: Denies: dyspnea or productive cough GI: Denies: abdominal pain, nausea or vomiting Musc: Reports: extremity pain (Right upper extremity) and limited range of motion; Denies: extremity swelling or joint swelling Skin/Breast: Reports: other (Small abrasion nose) Psych: Denies: anxiety or depression PFSH ED PFSH: Medical History Homelessness unspecified Sleep apnea Arthralgia Fatigue MUNDO positive Psychiatric care Major depressive disorder, recurrent, 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 Fibromyalgia Hypertension Hyperlipidemia Bipolar disorder Surgical History H/O tubal ligation Family History Family/Other Diabetes Other CAD (coronary artery disease) Cancer Hyperlipidemia Rheumatoid arthritis Denies family history of Lupus Clotting disorder Dementia Psychiatric illness Chronic kidney disease (CKD) Suicide Anesthesia complication Bleeding disorder Family history of premature coronary artery disease Lung disease Hypertension Stroke Social History Smoking and tobacco/nicotine status: current every day tobacco/nicotine user Alcohol intake: former Substance/Drug Use: never Current occupational status: disabled Physical Exam Const: COMMON NORMALS: patient oriented x3 and alert NUTRITIONAL APPEARANCE: obese Resp: COMMON NORMALS: normal respiratory effort and clear to auscultation bilaterally AUSCULTATION: clear to auscultation bilaterally Cardio: COMMON NORMALS: regular rate and regular rhythm RATE: regular rate RHYTHM: regular rhythm Extremity: NARRATIVE EXTREMITY EXAM: No obvious deformity. Tenderness medial aspect of right elbow and right forearm Neuro: COMMON NORMALS: patient oriented x3 and CN's II-XII intact bilaterally SENSORIUM/ORIENTATION: Yes alert Psych: COMMON NORMALS: mental status grossly normal and cooperative Skin: COMMON NORMALS: no rashes or lesions noted, no wounds and turgor normal GENERAL SKIN EXAM: no rashes or lesions noted and turgor normal Course Vital Signs: Vital signs: Vital Signs Temperature 98.0 F 06/16/24 15:48 Pulse Rate 54 L 06/16/24 19:00 Respiratory Rate 16 06/16/24 19:00 Blood Pressure 164/66 06/16/24 18:30 Pulse Oximetry 99 06/16/24 19:00 Oxygen Delivery Me thod Room Air 06/16/24 18:30 MDM - Fall Medical Decision Making Patient's x-rays were ordered and reviewed. Patient was requesting discharge prior to final interpretation. I discussed with her that there may be a small abnormality noted and I was waiting on clarification per radiology. Patient felt that she would just like to be discharged home and we can call her if there is any abnormalities noted on final interpretation per radiology report. Patient was discharged home as requested. Patient's x-rays were resulted as patient was being discharged. Patient has a radial head fracture. I discussed findings with patient. She was already placed in a sling. Patient was provided with orthopedic consultation phone number to call tomorrow morning. She is stable and discharged home. Lab Data Radiology Impressions Forearm X-Ray 06/16/24 16:43 IMPRESSION: Nondisplaced radial head fracture. Humerus X-Ray 06/16/24 16:43 IMPRESSION: 1. No acute fracture involving the humerus. 2. Nondisplaced radial head fracture. XR interpretation done by ED provider, pending radiology final review Discharge Plan Discharge Patient Disposition: Home Clinical Impression: Fall from slip, trip, or stumble, Elbow injury, Forearm injury, Fracture of radial head, right, closed Condition: Stable Prescriptions: New tramadol 50 mg tablet 50 mg PO BID PRN (Reason: pain) Qty: 10 0RF No Action medroxyprogesterone 2.5 mg tablet 2.5 mg PO DAILY trazodone 50 mg tablet 25 mg PO DAILY tramadol 50 mg tablet 50 mg PO QID estradiol [Estrace] 1 mg tablet 1 mg PO DAILY lisinopril 2.5 mg tablet 2.5 mg PO DAILY lovastatin 40 mg tablet 40 mg PO DAILY pregabalin [Lyrica] 100 mg capsule 100 mg PO BID omeprazole 40 mg capsule,delayed release(DR/EC) 40 mg PO DAILY pioglitazone [Actos] 45 mg tablet 45 mg PO DAILY azelastine 137 mcg (0.1 %) aerosol,spray 1 spray INTRANASAL DAILY fluticasone propionate 50 mcg/actuation spray,suspension 2 spray intranasal DAILY Rx Instructions: administer into each nostril zolpidem [Ambien CR] 6.25 mg tablet,ext release multiphase 6.25 mg PO QPM topiramate [Topamax] 25 mg tablet 50 mg PO DAILY Qty: 180 0RF hydroxychloroquine 200 mg tablet 300 mg PO DAILY Qty: 60 3RF carbamazepine [Tegretol] 200 mg tablet 200 mg PO BID Qty: 60 2RF fluoxetine [Prozac] 40 mg capsule 40 mg PO DAILY Qty: 90 0RF sennosides-docusate sodium [Stool Softener-Laxative] 8.6-50 mg tablet 1 tab PO BID levothyroxine 100 mcg tablet 100 mcg PO DAILY Discharge Orders: Discharge ED (Routine); Ordered 06/16/24 Ordered By: Boo Berrios Referrals: Toro Leos MD [Physician, Orthopedics] Heriberto Thomson [Primary Care Provider, Family Practice] Discharge Diet: Usual diet Discharge Activity: Increase activity as tolerated Patient Instructions: Arm Pain (ED), Elbow Strain (ED), Opioid Safety, Pain Management Activity Restrictions/Additional Instructions: You may use diclofenac cream as directed on package. Please follow-up with your primary care provider in 7 to 10 days if symptoms or not improving or continue to worsen. Please wear sling until cleared by orthopedic surgery. Please call Dr. Mayes's office to arrange for an outpatient follow-up. Print Language: [place] Coding Level of Care Code ED Lay Out Maker for [place]
== END 2024-06-16 20:03 | disposition home or self-care (01) ==
PROVIDERS: Emergency Provider Student in an Organized Health Care Education/Training Program; PCP Family Medicine
DX: S52.124A Nondisplaced fracture of head of right radius, initial encounter for closed fracture (principal); W01.0XXA Fall on same level from slipping, tripping and stumbling without subsequent striking against object, initial encounter; Z72.0 Tobacco use; E11.42 Type 2 diabetes mellitus with diabetic polyneuropathy; E78.5 Hyperlipidemia, unspecified; I10 Essential (primary) hypertension; S59.901A Unspecified injury of right elbow, initial encounter; S59.911A Unspecified injury of right forearm, initial encounter
CPT/HCPCS: 73060; 73090; 96374; 96375; 99284; J2270; J2405

== ENCOUNTER → 2024-06-27 14:30 | Outpatient (BNVA) | payer OTHER, MEDICAID, SELFPAY | PROVIDERS: PCP Family Medicine; Visit Provider Orthopaedic Surgery | DX: S52.121D Displaced fracture of head of right radius, subsequent encounter for closed fracture with routine healing (principal); W01.0XXD Fall on same level from slipping, tripping and stumbling without subsequent striking against object, subsequent encounter | CPT/HCPCS: 99204 ==

== ENCOUNTER → 2024-07-11 11:39 | Outpatient (BNVA) | payer OTHER, MEDICAID, SELFPAY | PROVIDERS: PCP Family Medicine; Visit Provider Orthopaedic Surgery | DX: S52.124D Nondisplaced fracture of head of right radius, subsequent encounter for closed fracture with routine healing (principal); X58.XXXD Exposure to other specified factors, subsequent encounter | CPT/HCPCS: 73090; 99213 ==

== ENCOUNTER → 2024-08-05 11:02 | Outpatient (BNVA) | payer MEDICARE, SELFPAY | PROVIDERS: PCP Family Medicine; Visit Provider Orthopaedic Surgery | DX: S52.124D Nondisplaced fracture of head of right radius, subsequent encounter for closed fracture with routine healing (principal); W19.XXXD Unspecified fall, subsequent encounter | CPT/HCPCS: 73090; 99213 ==